=== PATIENT | female | born 1960 | race Caucasian/White ===

== ENCOUNTER 2017-04-01 21:21 | Inpatient (IN) ==
[2017-04-01 23:12] LABS: Mean Corpuscular Volume 105.9 fL (83.0-100.0); Red Cell Distribution Width 17.2 % (11.5-14.5)
[2017-04-01 23:14] LABS: Basophils % 0.4 %; Eosinophils # 0.1 K/mcL (0.0-0.6); Eosinophils % 1.4 %; Hematocrit 23.3 % (35.3-44.9); Immature Granulocytes % 0.4 % (0-4); Lymphocytes # 1.6 K/mcL (0.6-4.6); Lymphocytes % 17.5 %; Mean Corpuscular HGB Conc 28.8 g/dL (31.6-35.5); Mean Corpuscular Hemoglobin 30.5 pg (28.0-33.3); Mean Platelet Volume 9.3 fL (9.4-12.4); Monocytes # 0.8 K/mcL (0.0-1.3); Monocytes % 9.1 %; Neutrophils # 6.5 K/mcL (1.6-8.9); Platelet Count 438 K/mcL (140-400); Segmented Neutrophils % 71.2 %
[2017-04-01 23:25] LABS: BUN/Creatinine Ratio 10 (6-26); Blood Urea Nitrogen 7 mg/dL (7-20); Calcium 8.1 mg/dL (8.6-10.8); Carbon Dioxide 26 mEq/L (19-29); Chloride 105 mEq/L (98-109); Glucose 128 mg/dL (70-99); Osmolality,Calculated 286 (280-300); Potassium 3.3 mEq/L (3.5-4.5); Sodium 138 mEq/L (136-145); eGFR For African Americans > 60 (> 60); eGFR For Non-African Americans > 60 (> 60)
[2017-04-01 23:26] LABS: Hemoglobin 6.7 g/dL (11.5-15.4)
[2017-04-01 23:34] LABS: Anisocytosis 1+ (Not Present); Hypochromasia Present (Not Present)
[2017-04-01 23:35] LABS: Platelet Estimate Normal (Normal); Polychromasia 2+ (Not Present)
--- NOTE | 2017-04-01 23:52 | Emergency Department Note ---
Disposition Clinical Impression: NSTEMI (non-ST elevated myocardial infarction), Leg edema Disposition: Admitted As Inpatient Condition: Good Instructions: Myocardial Infarction (GEN), Leg Edema (ED) Referrals: Unassigned,Provider [Non-Partnered Physician] - Forms: ED Satisfaction Letter Time of Disposition: 23:58 Chest Pain HPI - General Chief Complaint: ED Chest Pain Stated Complaint: CP all day Time Seen by Provider: 04/01/17 23:14 Source: patient Mode of arrival: private vehicle Limitations: no limitations Vital Signs Reviewed: Yes Nursing Notes Reviewed: Yes - History of Present Illness HPI Narrative: 56-year-old female patient presents to emergency department with complaint of chest pain. Patient states that her pain has been present for the last 3-4 days , intermittent in nature but progressively worsening over the last 24 hours. Patient states that the pain is present with exertion but also will present at rest. She does note some mild shortness of breath but states this is normal. Patient currently denies any chest discomfort, however states that when the pain is present it can be severe at times. Patient has not had any previous cardiac issues, however states that she has had bilateral carotid endarterectomies with Dr. Obregon. She denies any recent illnesses, fever, chills, nausea or vomiting. She denies having any known drug allergies. She denies any new medications. Additionally, she notes that she sees Dr. May for chronic anemia, for which she receives iron infusions. Pt complaint: chest pain Onset (ago): day(s) Duration: constant Onset: during rest, during exertion Pain Location: left chest Severity: moderate Severity scale (1-10): 5 Quality: sharp Pain Radiation: none Improves with: nothing Worsens with: nothing Associated symptoms: Reports: dyspnea, leg swelling. Denies: nausea, vomiting, diaphoresis, sense of impending doom Treatments prior to arrival chest pain: none - Related Data Home Medications Medication Instructions Recorded Confirmed Albuterol Sulfate [Albuterol 1 puff IH BID PRN 06/20/15 03/30/17 Inhaler] Aspirin Enteric Coated [Aspirin EC] 81 mg PO DAILY 06/20/15 03/30/17 Furosemide [Lasix] 20 mg PO DAILY PRN 06/20/15 03/30/17 Omeprazole [PriLOSEC] 40 mg PO DAILY 06/20/15 03/30/17 Potassium Chloride 10 meq PO DAILY PRN 06/20/15 03/30/17 Pravastatin Sodium [Pravachol] 40 mg PO DAILY 06/20/15 03/30/17 clonazePAM [Klonopin] 0.5 mg PO DAILY PRN 06/20/15 03/30/17 Dicyclomine [Bentyl] 10 mg PO QID 10/25/16 03/30/17 Mometasone/Formoterol [Dulera 200 2 puff IH BID 10/25/16 03/30/17 Mcg/5 Mcg Inhaler] DULoxetine [Cymbalta] 30 mg PO DAILY 03/16/17 03/30/17 Sucralfate [Carafate] 1 gm PO TID 03/16/17 03/30/17 Cholecalciferol (Vitamin D3) 50,000 unit PO QWEEK 03/30/17 03/30/17 [Vitamin D] Iron 325 mg PO BID 03/30/17 03/30/17 Previous Rx's Medication Instructions Recorded Ondansetron HCl [Zofran] 4 mg PO Q6H PRN #10 tablet 02/04/17 Allergies Allergy/AdvReac Type Severity Reaction Status Date / Time No Known Allergies Allergy Verified 04/01/17 21:37 All systems ED: reviewed and negative except as stated. Constitutional: Denies: fever, chills Cardiovascular: Reports: chest pain, palpitations Respiratory: Reports: dyspnea. Denies: cough, wheezes Gastrointestinal: Denies: abdominal pain, nausea, vomiting Musculoskeletal: Denies: back pain, neck pain Integumentary: Denies: rash, abrasion, lesions Neurological: Denies: headache Psychiatric: Denies: anxiety, depression, suicidal thoughts, homicidal thoughts Chest Pain PMH - Past Medical History Medical history: Reports: hyperlipidemia, asthma, COPD Surgical history: Reports: appendectomy, carotid endarterectomy, cholecystectomy , hysterectomy, RAJESH/BSO Psychiatric history: Reports: anxiety, depression - Social History Smoking Status: Never smoker Alcohol use: Reports: none Drug use: Reports: none Physical Exam - General Limitations: no limitations General appearance: alert - Head Head exam: atraumatic, normocephalic, normal inspection - Eye Eye exam: Present: normal appearance, PERRL - Neck Neck exam: Present: normal inspection, full ROM, trachea midline - Chest Chest inspection: Present: normal inspection, symmetric chest wall rise. Absent : tenderness - Respiratory Respiratory exam: Present: normal lung sounds bilaterally. Absent: respiratory distress, wheezes, stridor - Cardiovascular Cardiovascular exam: Present: normal rhythm, tachycardia, normal heart sounds - Extremities Exam Extremities exam: Present: normal inspection, full ROM. Absent: tenderness, pedal edema - Expanded Lower Extremity Exam Gait: observed and normal - Back Exam Back exam: Present: normal inspection, full ROM. Absent: tenderness - Neurological Exam Neurological exam: Present: alert, oriented X3 - Psychiatric Psychiatric exam: Present: normal affect, normal mood - Skin Skin exam: Present: warm, dry, intact, normal color Course Vital Signs Temperature 98 F 04/01/17 21:33 Pulse Rate 117 04/01/17 21:33 Respiratory Rate 16 04/01/17 21:33 Blood Pressure 139/61 04/01/17 21:33 O2 Sat by Pulse Oximetry 99 04/01/17 21:33 Temperature 98 F 04/01/17 21:33 Pulse Rate 96 04/02/17 01:07 Respiratory Rate 20 04/02/17 01:07 Blood Pressure 128/67 04/02/17 01:07 O2 Sat by Pulse Oximetry 97 04/02/17 01:07 Oxygen Delivery Oxygen Delivery Room Air Chest Pain - Lab Data Lab results reviewed: Yes I reviewed the patient's lab results. Result diagrams: 04/01/17 23:06 04/01/17 23:06 Lab Results 04/01/17 04/01/17 04/01/17 Range/Units 23:06 23:06 23:06 WBC 9.1 (4.3-11.1) K/mcL RBC 2.20 L (3.82-4.97) M/mcL Hgb 6.7 L (11.5-15.4) g/dL Hct 23.3 L (35.3-44.9) % MCV 105.9 H (83.0-100.0) fL MCH 30.5 (28.0-33.3) pg MCHC 28.8 L (31.6-35.5) g/dL RDW 17.2 H (11.5-14.5) % Plt Count 438 H (140-400) K/mcL MPV 9.3 L (9.4-12.4) fL Immature Gran % 0.4 (0-4) % Seg Neutrophils % 71.2 % Lymphocytes % 17.5 % Monocytes % 9.1 % Eosinophils % 1.4 % Basophils % 0.4 % Neutrophils # 6.5 (1.6-8.9) K/mcL Lymphocytes # 1.6 (0.6-4.6) K/mcL Monocytes # 0.8 (0.0-1.3) K/mcL Eosinophils # 0.1 (0.0-0.6) K/mcL Basophils # 0.0 (0.0-0.2) K/mcL Platelet Estimate Normal (Normal) Polychromasia 2+ A (Not Present) Hypochromasia Present A (Not Present) Anisocytosis 1+ A (Not Present) Sodium 138 (136-145) mEq/L Potassium 3.3 L (3.5-4.5) mEq/L Chloride 105 (98-109) mEq/L Carbon Dioxide 26 (19-29) mEq/L BUN 7 (7-20) mg/dL Creatinine 0.68 (0.57-1.11) mg/dL Est GFR ( Amer) > 60 (> 60) Est GFR (Non-Af Amer) > 60 (> 60) BUN/Creatinine Ratio 10 (6-26) Glucose 128 H (70-99) mg/dL Calculated Osmolality 286 (280-300) Calcium 8.1 L (8.6-10.8) mg/dL Troponin I 0.15 H* (0-0.03) ng/mL B-Natriuretic Peptide (0-100) pg/mL 04/01/17 Range/Units 23:06 WBC (4.3-11.1) K/mcL RBC (3.82-4.97) M/mcL Hgb (11.5-15.4) g/dL Hct (35.3-44.9) % MCV (83.0-100.0) fL MCH (28.0-33.3) pg MCHC (31.6-35.5) g/dL RDW (11.5-14.5) % Plt Count (140-400) K/mcL MPV (9.4-12.4) fL Immature Gran % (0-4) % Seg Neutrophils % % Lymphocytes % % Monocytes % % Eosinophils % % Basophils % % Neutrophils # (1.6-8.9) K/mcL Lymphocytes # (0.6-4.6) K/mcL Monocytes # (0.0-1.3) K/mcL Eosinophils # (0.0-0.6) K/mcL Basophils # (0.0-0.2) K/mcL Platelet Estimate (Normal) Polychromasia (Not Present) Hypochromasia (Not Present) Anisocytosis (Not Present) Sodium (136-145) mEq/L Potassium (3.5-4.5) mEq/L Chloride (98-109) mEq/L Carbon Dioxide (19-29) mEq/L BUN (7-20) mg/dL Creatinine (0.57-1.11) mg/dL Est GFR ( Amer) (> 60) Est GFR (Non-Af Amer) (> 60) BUN/Creatinine Ratio (6-26) Glucose (70-99) mg/dL Calculated Osmolality (280-300) Calcium (8.6-10.8) mg/dL Troponin I (0-0.03) ng/mL B-Natriuretic Peptide 96 (0-100) pg/mL - Radiology Data Radiology results reviewed: Yes I reviewed the patient's radiology results. - EKG Data EKG attestation: Yes I reviewed and interpreted this EKG. EKG shows normal: sinus rhythm Rate: tachycardia Rhythm: NSR Apollo/QRS: normal Heart Score - Score History: Moderately Suspicious EKG: Normal Age: 45-65 Risk Factors: 1-2 risk factors Troponin: 1-3x normal limit HEART Score Total: 4
[2017-04-02] MEDS ORDERED: *HR* Heparin 5,000 UNIT/ML VIAL IVP ONE ×2 (00:24→01:48)
[2017-04-02] MEDS ORDERED: Aspirin 81 MG TAB.CHEW PO STA (00:24)
[2017-04-02] MEDS ORDERED: *HR* Morphine 2 MG/ML SYRINGE IVP PRN (01:03)
[2017-04-02] MEDS ORDERED: Acetaminophen 325 MG TABLET PO PRN (02:14)
[2017-04-02] MEDS ORDERED: Ondansetron 4 MG/2 ML VIAL IVP PRN (02:14)
[2017-04-02] MEDS ORDERED: Naloxone 0.4 MG/ML INJ IVP PRN (02:14)
[2017-04-02] MEDS ORDERED: clonazePAM 0.5 MG TABLET PO PRN (02:18)
[2017-04-02] MEDS ORDERED: Ipratropium/Albuterol Neb 3 ML IH PRN (03:22)
--- NOTE | 2017-04-02 03:26 | Internal Med History&Physical ---
<DeniaDale coon Rochelle - Last Filed: 04/02/17 03:23> Date of Encounter: 04/02/17 Time of Encounter: 03:24 Assessment and Plan (1) Symptomatic anemia Current visit: Yes Status: Acute Patient presents with a hemoglobin of 6.7 with tachycardia and chest pain. 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 There has not been a change in the patient's stool character as it is always black in the setting of iron supplementation. Will send stool for Hemoccult blood. Transfuse 2 units. If hemoglobin does not respond appropriately or Hemoccult stool is positive patient may warrant consult for endoscopy. (2) Demand ischemia Current visit: Yes Status: Acute Patient has a slightly elevated troponin at 0.15, most likely demand ischemia in the setting of anemia as discussed above. ACS is also a concern given as the patient has risk factors for coronary artery disease including strong early family history and history of vascular disease with carotid stenosis. We will trend troponins and if troponin rises patient may warrant further investigation related to coronary artery disease. EKG is normal sinus rhythm with no changes concerning for ischemia. Patient had an echocardiogram one week ago that showed a normal EF with mild diastolic dysfunction with no segmental wall motion abnormalities. We will continue aspirin and statin but will not anticoagulate at this time given the concern for GI bleed as discussed above. (3) Hypokalemia Current visit: Yes Status: Acute Potassium 3.3 on presentation, will replete. We will recheck. (4) Primary biliary cirrhosis Current visit: Yes Status: Acute With gastric antral vascular ectasia. Concerned that this is a source of bleeding as discussed above. If hemoglobin does not respond or patient develops brisk upper GI bleed patient will likely require consultation for endoscopy. (5) Carotid stenosis, bilateral Current visit: Yes Status: Acute Stable. Status post carotid endarterectomy in June 2015. Continue aspirin and statin. (6) Depression Current visit: Yes Status: Acute Stable. Continue home medications. Qualifiers: Depression Type: unspecified Qualified Code(s): F32.9 - Major depressive disorder, single episode, unspecified (7) DVT prophylaxis Current visit: Yes Status: Acute EPCDs Internal Medicine - H&P: HPI Chief complaint: Chest pain Admitted From: Emergency Dept Plans for Post Hospital Care: Home History of present illness: Ms. Barajas is a 56 year old female with history of primary biliary cirrhosis, anemia, carotid stenosis presents with chest pain. Patient states that her chest pain started 3 days ago. She states when it initially started it was intermittent and occurred occasionally both at rest and with exertion and when she got emotional. She states that this afternoon the chest pain became constant. She describes it as a tightness that wraps all the way around her chest and her back. She states she has never had anything like this before. She reports occasional nausea and dry heaves associated with her pain. She denies shortness of breath, diaphoresis. Patient states that she has history of anemia and is seeing a post splitter for this, and she is unknown of the cause at this time. She denies any active source of bleeding. She states her bowel movements are always black due to the iron supplementation that she takes. She denies any change in her bowel movements. She denies hematemesis, epistaxis, hematuria. Past Med Surg Social Fam HX - Past Medical History Medical history: hyperlipidemia, asthma, COPD Psychiatric history: anxiety, depression - Past Surgical History Surgical History: appendectomy, carotid endarterectomy, cholecystectomy, hysterectomy, RJAESH/BSO - Social History Smoking Status: Never smoker Smokeless Tobacco Status: No Alcohol use: none Drug use: none - Family History Father Hx Family Cardiac Disorders: Yes (CA at age 40) Mother Hx Family Cardiac Disorders: Yes (CA in 60s and carotid stenosis) Internal Medicine - H&P: Meds Albuterol Sulfate [Albuterol Inhaler] 1 puff IH BID PRN 06/20/15 [History] Aspirin Enteric Coated [Aspirin EC] 81 mg PO DAILY 06/20/15 [History] Furosemide [Lasix] 20 mg PO DAILY PRN 06/20/15 [History] Omeprazole [PriLOSEC] 40 mg PO DAILY 06/20/15 [History] Potassium Chloride 10 meq PO DAILY PRN 06/20/15 [History] Pravastatin Sodium [Pravachol] 40 mg PO DAILY 06/20/15 [History] clonazePAM [Klonopin] 0.5 mg PO DAILY PRN 06/20/15 [History] Dicyclomine [Bentyl] 10 mg PO QID 10/25/16 [History] Mometasone/Formoterol [Dulera 200 Mcg/5 Mcg Inhaler] 2 puff IH BID 10/25/16 [ History] Ondansetron HCl [Zofran] 4 mg PO Q6H PRN #10 tablet 02/04/17 [Rx] DULoxetine [Cymbalta] 30 mg PO DAILY 03/16/17 [History] Sucralfate [Carafate] 1 gm PO TID 03/16/17 [History] Cholecalciferol (Vitamin D3) [Vitamin D] 50,000 unit PO QWEEK 03/30/17 [History] Iron 325 mg PO BID 03/30/17 [History] Allergies No Known Allergies Allergy (Verified 04/01/17 21:37) All Systems PM: A 10-system review of systems was performed and is negative for pertinent findings except as documented above in the HPI. Review of systems: 10 point review of systems was obtained and is negative other than stated in history of present illness. - Constitutional Vitals: Temp Pulse Resp BP Pulse Ox 98 F 100 18 122/52 96 04/01/17 21:33 04/02/17 02:23 04/02/17 03:06 04/02/17 03:06 04/02/17 02:23 General appearance: Present: A&O X 3, pleasant, no acute distress, answers questions appropriately - Head Head exam: Present: atraumatic, normal inspection, normocephalic - Eye Eye exam: Present: EOMI, PERRL - ENT ENT exam: Present: mucous membranes moist - Neck Neck exam general surgery: Present: full ROM. Absent: nuchal rigidity - Respiratory Respiratory exam: Present: CTAB. Absent: rales, rhonchi, wheezes - Cardiovascular Cardiovascular exam: Present: RRR. Absent: gallop, rubs, systolic murmur Additional comments: Chest pain not reproducible on palpation. - GI/Abdominal GI/Abdominal exam: Present: normal bowel sounds, soft. Absent: distended, tenderness - Extremities Exam Extremities exam: Present: pedal edema (1+) - Neurological Exam Neurological exam: Present: alert, CN II-XII intact, oriented X3, no focal deficits, strengths equal and symetr throughout. Absent: facial droop, speech deficit - Psychiatric Psychiatric exam: Present: normal affect, normal mood - Skin Skin exam: Present: dry, intact, warm Internal Med - H&P Results - Labs CBC & Chem 7: 04/01/17 23:06 04/01/17 23:06 <Joe Mcnair - Last Filed: 04/02/17 04:13> Date of Encounter: 04/02/17 Internal Medicine - H&P: HPI History of present illness: Ms. Barajas is a 56 year old female All Systems PM: A 10-system review of systems was performed and is negative for pertinent findings except as documented above in the HPI. - Constitutional Vitals: Temp Pulse Resp BP Pulse Ox 98 F 100 18 122/52 96 04/01/17 21:33 04/02/17 02:23 04/02/17 03:06 04/02/17 03:06 04/02/17 02:23 Internal Med - H&P Results - Labs CBC & Chem 7: 04/01/17 23:06 04/01/17 23:06 - EKG Data -: EKG Interpreted by Myself (no ischemic changes) - Diagnostic Studies Chest x-ray Status: image reviewed by me - Attending Attestation I personally interviewed and examined this patient and my medical decision- making was reviewed with the Resident Physician. I agree with the documented findings, disposition and treatment plan as described. Joe Mcnair MD, MPH Hospitalist
[2017-04-02] MEDS ORDERED: 0.9 % Sodium Chloride 250 ML ONE ×2 (03:54→10:16)
[2017-04-02] MEDS ORDERED: Potassium Chloride 20 MEQ, Lidocaine 1% 2 ML in D5% in Water 250 ML IVPB ONE (06:01)
[2017-04-02] MEDS: Sucralfate 1 GM TABLET PO SCH ×3 (07:58→22:46)
[2017-04-02] MEDS: Aspirin Enteric Coated 81 MG Tablet PO SCH (07:58)
[2017-04-02] MEDS: Pantoprazole 40 MG VIAL IVP SCH ×2 (07:59→22:46)
[2017-04-02 08:10] LABS: Basophils % 0.5 %; Eosinophils # 0.2 K/mcL (0.0-0.6); Eosinophils % 2.4 %; Hematocrit 21.1 % (35.3-44.9); Hemoglobin 6.3 g/dL (11.5-15.4); Immature Granulocytes % 0.3 % (0-4); Immature Reticulocyte % 36.3 % (11.0-38.0); Lymphocytes # 1.5 K/mcL (0.6-4.6); Mean Corpuscular HGB Conc 29.9 g/dL (31.6-35.5); Mean Corpuscular Volume 100.5 fL (83.0-100.0); Mean Platelet Volume 9.4 fL (9.4-12.4); Monocytes # 0.7 K/mcL (0.0-1.3); Monocytes % 11.1 %; Neutrophils # 3.7 K/mcL (1.6-8.9); Platelet Count 354 K/mcL (140-400); Red Cell Distribution Width 20.5 % (11.5-14.5); Reticulocyte % 9.7 % (1.6-2.8); Segmented Neutrophils % 60.7 %
[2017-04-02 08:14] LABS: INR 1.1; Prothrombin Time 12.2 Seconds (9.4-12.1)
[2017-04-02 08:30] LABS: BUN/Creatinine Ratio 11 (6-26); Blood Urea Nitrogen 7 mg/dL (7-20); Calcium 7.7 mg/dL (8.6-10.8); Carbon Dioxide 29 mEq/L (19-29); Chloride 105 mEq/L (98-109); Glucose 142 mg/dL (70-99); Magnesium 1.8 mg/dL (1.6-2.6); Osmolality,Calculated 286 (280-300); Potassium 3.3 mEq/L (3.5-4.5); Sodium 138 mEq/L (136-145); eGFR For African Americans > 60 (> 60); eGFR For Non-African Americans > 60 (> 60)
[2017-04-02] MEDS: Budesonide/Formoterol 160/4.5 MDI IH SCH ×2 (08:34→19:48)
--- NOTE | 2017-04-02 12:44 | Event Note ---
Date of Encounter: 04/02/17 Time of Encounter: 08:20 Pt admitted earlier today for anemia and chest pain. Has hx of PBC and GAVE. Hemoglobin not much change after first unit. Will repeat another unit and recheck. Legs edematous - most likely related to high output. Check venous duplex. Cycle troponin. NPO after midnight for possible stress or if H/H still low may need endoscopy. Other others as is for now.
[2017-04-02 16:06] LABS: Hematocrit 26.6 % (35.3-44.9); Hemoglobin 7.8 g/dL (11.5-15.4)
[2017-04-02 22:29] LABS: Hematocrit 24.1 % (35.3-44.9); Hemoglobin 7.2 g/dL (11.5-15.4)
[2017-04-03 03:54] LABS: Hematocrit 24.3 % (35.3-44.9); Hemoglobin 7.3 g/dL (11.5-15.4); Mean Corpuscular Hemoglobin 29.4 pg (28.0-33.3); Mean Platelet Volume 9.6 fL (9.4-12.4); Platelet Count 366 K/mcL (140-400); Red Blood Count 2.48 M/mcL (3.82-4.97); Red Cell Distribution Width 21.2 % (11.5-14.5)
[2017-04-03 04:04] LABS: BUN/Creatinine Ratio 11 (6-26); Blood Urea Nitrogen 7 mg/dL (7-20); Calcium 7.8 mg/dL (8.6-10.8); Carbon Dioxide 29 mEq/L (19-29); Chloride 110 mEq/L (98-109); Glucose 113 mg/dL (70-99); Osmolality,Calculated 293 (280-300); Potassium 3.6 mEq/L (3.5-4.5); Sodium 142 mEq/L (136-145); eGFR For African Americans > 60 (> 60); eGFR For Non-African Americans > 60 (> 60)
[2017-04-03] MEDS: Budesonide/Formoterol 160/4.5 MDI IH SCH (08:01)
[2017-04-03] MEDS: Aspirin Enteric Coated 81 MG Tablet PO SCH (09:22)
[2017-04-03] MEDS: Pantoprazole 40 MG VIAL IVP SCH (09:23)
[2017-04-03] MEDS: Sucralfate 1 GM TABLET PO SCH ×2 (09:23→15:08)
[2017-04-03] MEDS ORDERED: 0.9 % Sodium Chloride 250 ML ONE ×2 (10:34→15:07)
--- NOTE | 2017-04-03 11:03 | Discharge Summary ---
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 (4) Demand ischemia Priority: Secondary Status: Acute (5) Depression Priority: Secondary Status: Chronic Qualifiers: Depression Type: unspecified Qualified Code(s): F32.9 - Major depressive disorder, single episode, unspecified (6) MACHADO (nonalcoholic steatohepatitis) Priority: Secondary Status: Chronic - Discharge Medications Prescriptions: Nitroglycerin 0.4 mg SL Q5MIN PRN #1 bottle PRN Reason: Chest Pain Metoprolol [Lopressor] 12.5 mg PO BID #30 tablet Home Medications: Albuterol Sulfate [Albuterol Inhaler] 1 - 2 puff IH Q6H PRN 06/20/15 [History] Aspirin Enteric Coated [Aspirin EC] 81 mg PO DAILY 06/20/15 [History] Furosemide [Lasix] 20 mg PO DAILY PRN 06/20/15 [History] Omeprazole [PriLOSEC] 40 mg PO DAILY 06/20/15 [History] Potassium Chloride 10 meq PO DAILY 06/20/15 [History] Pravastatin Sodium [Pravachol] 40 mg PO DAILY 06/20/15 [History] clonazePAM [Klonopin] 0.5 mg PO DAILY PRN 06/20/15 [History] Dicyclomine [Bentyl] 10 mg PO QID 10/25/16 [History] Mometasone/Formoterol [Dulera 200 Mcg/5 Mcg Inhaler] 2 puff IH BID 10/25/16 [ History] DULoxetine [Cymbalta] 30 mg PO BID 03/16/17 [History] Sucralfate [Carafate] 1 gm PO TID 03/16/17 [History] Cholecalciferol (Vitamin D3) [Vitamin D3] 50,000 unit PO QWEEK 03/30/17 [History ] Ferrous Sulfate [Iron] 325 mg PO BID 03/30/17 [History] Escitalopram [Lexapro] 20 mg PO DAILY 04/02/17 [History] Ursodiol [Millicent Forte] 500 mg PO BID 04/02/17 [History] Aspirin Enteric Coated [Aspirin EC] 81 mg PO DAILY tablet. 04/03/17 [Rx] Metoprolol [Lopressor] 12.5 mg PO BID #30 tablet 04/03/17 [Rx] Nitroglycerin 0.4 mg SL Q5MIN PRN #1 bottle 04/03/17 [Rx] Allergies/Adverse Reactions: Allergies No Known Allergies Allergy (Verified 04/01/17 21:37) Procedures/tests Complete & Pending: Procedures Performed prior 72 hours Category Date Time Status EV venous imaging LE BI Routine Y 04/02/17 09:14 Completed Date of admission: 04/02/17 02:50 Primary care physician: Nata Zelaya CNP Consults: 04/03/17 09:02 Consult to Cardiology [CONS] Routine Comment: Consulting Provider: Cardiology [facility] Reason for Consult: abnormal troponin and chest pain Time Notified: 08:45 Call Completed: Yes Discharging clinician: Malcolm Borden Anticipated date of discharge: 04/03/17 - Patient Status Disposition: Home, Self-Care Condition: Good Functional capacity at discharge: independent ambulation Overall status at discharge: patient is progressing back to baseline - Discharge Instructions Follow Up With: Nata Zelaya CNP [Primary Care Provider] - Forms: Work/School Release - Diet and Activity Activity: increase activity as tolerated Diet: advance to your usual diet Hospital course: Ms. Barajas is a 56 year old female with hx of PBC and GAVE presented to ED with complaints of chest pain. She was evaluated and found to have hemoglobin of 6.7 and elevated troponin. She was admitted for further evaluation and treatment. Ms. Barajas was admitted to [facility]. She was transfused 2 units of PRBCs with some improvement in her hgb. She was evaluated by cardiology and due to anemia could not pursue further work up until improved. It was felt the troponin was demand ischemia. She had no further chest pain. She was given 2 more units PRBCs on 04/03. She tolerated OK and was felt stable for discharge home with outpatient follow up. - Time Spent with Patient Total time spent providing and/or coordinating discharge services: 42min - Constitutional Vitals: Temp Pulse Resp BP Pulse Ox 98.1 F 105 16 143/75 92 04/03/17 07:53 04/03/17 07:53 04/03/17 07:53 04/03/17 07:53 04/03/17 07:53 General appearance: Present: A&O X 3, pleasant, answers questions appropriately - Head Head exam: Present: normocephalic - Eye Eye exam: Present: conjuntiva pink - ENT ENT exam: Present: mucous membranes moist - Respiratory Respiratory exam: Present: CTAB. Absent: rhonchi, wheezes - Cardiovascular Cardiovascular exam: Present: RRR. Absent: tachycardia - GI/Abdominal GI/Abdominal exam: Present: soft. Absent: tenderness - Extremities Exam Extremities exam: Present: warm. Absent: tenderness - Neurological Exam Neurological exam: Present: alert, oriented X3, no focal deficits - Psychiatric Psychiatric exam: Present: normal affect, normal mood - Skin Skin exam: Present: dry, warm. Absent: rash
--- NOTE | 2017-04-03 13:19 | Venous Imaging Report ---
LE Venous Duplex Patient Name:Zina Barajas Order Number:[id number] Procedure Date:04/02/2017 Date:2Age:56 yrs Gender:Female Location:[facility] Room #: [id number] General Farmer:Lamberto Foley RDCS Referring MD:DO Dee Alvarenga MD:Maco Orielly MD Primary Indications:Swelling of limb Secondary Indications: Impressions: Normal bilateral lower extremity deep and superficial venous exam. Findings Venous Duplex Results: Right: Venous imaging of the lower extremity reveals full patency and normal vessel compressibility of the right distal iliac, right common femoral, right superficial femoral, right popliteal, right posterior tibial, right peroneal, right saphenofemoral junction, right great saphenous and right lesser saphenous. Doppler signals in the evaluated veins were normal. Left: Venous imaging of the lower extremity reveals full patency and normal vessel compressibility of the left distal iliac, left common femoral, left superficial femoral, left popliteal, left posterior tibial, left peroneal, left saphenofemoral junction, left great saphenous and left lesser saphenous. Doppler signals in the evaluated veins were normal. Prior Study: No prior study available for comparison. Lower Extremity Venous Duplex Side Vein Compress Spontaneous Flow Augment Diameter (cm) Depth (cm) Right Distal Iliac Normal Yes Phasic Yes Right Common Femoral Normal Yes Phasic Yes Right Superficial Femoral Normal Yes Phasic Yes Right Popliteal Normal Yes Phasic Yes Right Posterior Tibial Normal Yes Phasic Yes Right Peroneal Normal Yes Phasic Yes Right Saphenofemoral Junction Normal Yes Phasic Yes Right Great Saphenous Normal Yes Phasic Yes Right Lesser Saphenous Normal Yes Phasic Yes Left Distal Iliac Normal Yes Phasic Yes Left Common Femoral Normal Yes Phasic Yes Left Superficial Femoral Normal Yes Phasic Yes Left Popliteal Normal Yes Phasic Yes Left Posterior Tibial Normal Yes Phasic Yes Left Peroneal Normal Yes Phasic Yes Left Saphenofemoral Junction Normal Yes Phasic Yes Left Great Saphenous Normal Yes Phasic Yes Left Lesser Saphenous Normal Yes Phasic Yes Updated by Maco Oreilly MD on 04/03/2017 1:11:10 PM electronically signed on 04/03/2017 1:13:45 PM with status of Final
--- NOTE | 2017-04-03 14:09 | Cardiology Consult Note ---
<Fadumo Cordova Tahmina - Last Filed: 04/03/17 14:56> Date of Encounter: 04/03/17 Time of Encounter: 13:30 Assessment and Plan (1) Elevated troponin Current Visit: Yes Status: Acute Mild, adynamic troponin elevation in the setting of acute anemia requiring PRBC infusion. HgB 7.3 today. This is likely demand ischemia, non-diagnostic for ACS. Presented with atypical chest pain symptoms, now resolved. No ischemic ECG changes. Reported primary biliary colic and GAVE. Patient reports pending outpatient ECG with possible cauterization for gastric ulcers. She has significant risk factors for CAD including: HLD, PAD, former tobacco use , and family hx (father-[place] in 40's-50's/bypass and mother-[place] 60's). Currently not a candidate for ischemic evaluation. Recent TTE shows preserved LVEF, 70% with normal wall motion. Given acute anemia, recommend medical management--continue asa. Start betablocker and prn NTG tabs. Stop statin due to abnormal LFTs (AST 179, ALT 117 on 03/16/17). Close outpatient follow-up with [facility]--will coordinate appt for possible ischemic evaluation in the future once anemia/GI bleed has resolved. Discussion w patient/family: The assessment and plan as outlined above was discussed with the patient and/or family members who expressed understanding and agreement. All questions were answered. Thank you for involving us in the care of your patient. Please call with any questions. The patient will be discussed and reviewed with Dr. Vang; changes to be made accordingly. History of Present Illness Consult date: 04/03/17 Requesting physician: Malcolm Borden Consult reason: Elevated troponin Chief complaint: Chest pain, GI bleed History of present illness: Ms. 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 Patient states pain has been occurring over the past several days, described as left sided and is constant. Can obtain relief if she holds on to her side or rocking movement also improves pain. Upon arrival to ED, she was found to be anemic requiring PRBC, HgB 7.3 today. Cardiology consulted for troponin 0.15, 0.15, 0.12, 0.08 Reports extensive GI work-up recently with Dr. Carpenter--states has pending EGD to cauterize ulcers that is being coordinated in the outpatient setting. Has followed with Dr. May with Hematology for anemia and has received IV iron infusions. Prior CV testing: TTE 03/25/17: LVEF 70%, normal wall motion Past Med Surg Social Fam HX - Past Medical History Medical history: asthma, COPD, GERD, hyperlipidemia, liver disease, other ( biliary cirrhosis) Psychiatric history: anxiety, depression - Past Surgical History Surgical History: appendectomy, carotid endarterectomy (bilateral), cholecystectomy, hysterectomy, RAJESH/BSO, other - Social History Smoking Status: Former smoker Packs per day: 1.5-2 Smokeless Tobacco Status: No Alcohol use: rarely Drug use: none - Family History Father Hx Family Cardiac Disorders: Yes ([place] at age 40) Mother Hx Family Cardiac Disorders: Yes ([place] in 60s) Medications and Allergies Albuterol Sulfate [Albuterol Inhaler] 1 - 2 puff IH Q6H PRN 06/20/15 [History] Aspirin Enteric Coated [Aspirin EC] 81 mg PO DAILY 06/20/15 [History] Furosemide [Lasix] 20 mg PO DAILY PRN 06/20/15 [History] Omeprazole [PriLOSEC] 40 mg PO DAILY 06/20/15 [History] Potassium Chloride 10 meq PO DAILY 06/20/15 [History] Pravastatin Sodium [Pravachol] 40 mg PO DAILY 06/20/15 [History] clonazePAM [Klonopin] 0.5 mg PO DAILY PRN 06/20/15 [History] Dicyclomine [Bentyl] 10 mg PO QID 10/25/16 [History] Mometasone/Formoterol [Dulera 200 Mcg/5 Mcg Inhaler] 2 puff IH BID 10/25/16 [ History] DULoxetine [Cymbalta] 30 mg PO BID 03/16/17 [History] Sucralfate [Carafate] 1 gm PO TID 03/16/17 [History] Cholecalciferol (Vitamin D3) [Vitamin D] 50,000 unit PO QWEEK 03/30/17 [History] Ferrous Sulfate [Iron] 325 mg PO BID 03/30/17 [History] Escitalopram [Lexapro] 20 mg PO DAILY 04/02/17 [History] Ursodiol [Millicent Forte] 500 mg PO BID 04/02/17 [History] Allergies No Known Allergies Allergy (Verified 04/01/17 21:37) All Systems Review: A 10-system review of systems was performed and is negative for pertinent findings except as documented above in the HPI. - Cardiovascular Cardiovascular: as per HPI Physical Examination Vital Signs, Last 4 Hours Temp Pulse Resp BP Pulse Ox 04/03/17 11:19 98 F 98 16 121/73 93 04/03/17 11:04 98.2 F 102 16 137/81 96 General: Conversant, No Apparent Distress HEENT: Atraumatic, Normocephaly, Mucus Membranes Moist Neck: No JVD, Normal carotid pulses Cardiac: Reg Rate and Rhythm, Normal S1 and S2, No Murmur Lungs: Normal Breath Sounds, No Wheeze, Rales, Rhonchi Neuro: Alert and responsive, No focal deficits noted Abdomen: Soft, Non-Tender Skin: No rashes noted on visualized skin Musculoskeletal: No Chest Wall Tenderness Extremities: No Clubbing, No Cyanosis, Normal Pulses, Other (non-pitting BLE edema) Results 04/03/17 03:23 04/03/17 03:23 Lab Results 04/02/17 04/02/17 04/02/17 13:45 15:50 22:02 WBC Hgb 7.8 L D 7.2 L Hct 26.6 L 24.1 L Plt Count Sodium Potassium Chloride Carbon Dioxide BUN Creatinine Glucose Calcium Magnesium Troponin I 0.12 H* 04/02/17 04/03/17 04/03/17 22:02 03:23 03:23 WBC 6.4 Hgb 7.3 L Hct 24.3 L Plt Count 366 Sodium 142 Potassium 3.6 Chloride 110 H Carbon Dioxide 29 BUN 7 Creatinine 0.63 Glucose 113 H Calcium 7.8 L Magnesium 2.0 Troponin I 0.08 H* Active Medications Acetaminophen (Tylenol) 650 mg PO Q6HR PRN PRN Reason: Mild Pain (1-3) Stop: 10/02/17 02:15 Last Admin: 04/03/17 06:12 Dose: 650 mg Albuterol/Ipratropium (Duoneb) 3 ml IH [id number] PRN; Protocol PRN Reason: Shortness Of Breath/Wheezing Stop: 10/02/17 03:23 Aspirin (Aspirin Ec) 81 mg PO DAILY [facility] Stop: 10/02/17 09:01 Last Admin: 04/03/17 09:22 Dose: 81 mg Budesonide/Formoterol Fumarate (Symbicort) 1 puff IH BIDR [facility] PRN Reason: Protocol Stop: 10/02/17 10:01 Last Admin: 04/03/17 08:01 Dose: Not Given Clonazepam (Klonopin) 0.5 mg PO DAILY PRN PRN Reason: Anxiety Stop: 10/02/17 02:19 Duloxetine HCl (Cymbalta) 30 mg PO DAILY [facility] Stop: 10/02/17 09:01 Last Admin: 04/03/17 09:23 Dose: 30 mg Ferrous Sulfate (Ferrous Sulfate) 325 mg PO BID [facility] Stop: 10/02/17 09:01 Last Admin: 04/03/17 09:23 Dose: 325 mg Naloxone HCl (Narcan) 0.4 mg IVP Q2MIN PRN PRN Reason: Opioid Reversal Stop: 10/02/17 02:15 Ondansetron HCl (Zofran) 4 mg IVP Q8HR PRN PRN Reason: Nausea And Vomiting Stop: 10/02/17 02:15 Pantoprazole Sodium (Protonix) 40 mg IVP BID [facility] Stop: 10/02/17 09:01 Last Admin: 04/03/17 09:23 Dose: 40 mg Simvastatin (Zocor) 20 mg PO DAILY [facility] Stop: 10/02/17 09:01 Last Admin: 04/03/17 09:22 Dose: 20 mg Sucralfate (Carafate) 1 gm PO TID [facility] Stop: 10/02/17 09:01 Last Admin: 04/03/17 09:23 Dose: 1 gm - Imaging and Cardiology Echo: report reviewed Other Results: 12 hour tele: avg HR=79 SR. No significant event noted. - EKG Interpretation EKG results cardiology: personally reviewed Consult Discharge Plan - Plan Referrals: Nata Zelaya, DANILO [Primary Care Provider] - <Devora Vang - Last Filed: 04/03/17 16:24> Date of Encounter: 04/03/17 Assessment and Plan Discussion w patient/family: The assessment and plan as outlined above was discussed with the patient and/or family members who expressed understanding and agreement. All questions were answered. Thank you for involving us in the care of your patient. Please call with any questions. History of Present Illness History of present illness: Ms. Barajas is a 56 year old female All Systems Review: A 10-system review of systems was performed and is negative for pertinent findings except as documented above in the HPI. Physical Examination Vital Signs, Last 4 Hours Temp Pulse Resp BP Pulse Ox 04/03/17 15:28 98.6 F 97 17 133/80 96 04/03/17 15:13 98.7 F 96 16 127/68 96 04/03/17 14:50 98.7 F 96 16 127/68 96 Results 04/03/17 03:23 04/03/17 03:23 Lab Results 04/02/17 04/02/17 04/03/17 22:02 22:02 03:23 WBC 6.4 Hgb 7.2 L 7.3 L Hct 24.1 L 24.3 L Plt Count 366 Sodium Potassium Chloride Carbon Dioxide BUN Creatinine Glucose Calcium Magnesium Troponin I 0.08 H* 04/03/17 03:23 WBC Hgb Hct Plt Count Sodium 142 Potassium 3.6 Chloride 110 H Carbon Dioxide 29 BUN 7 Creatinine 0.63 Glucose 113 H Calcium 7.8 L Magnesium 2.0 Troponin I - Attending Attestation I examined this patient and my medical decision-making was reviewed with the PIGMENT MAKING SUPERVISOR/PA/Advanced Practice Nurse/Resident Physician. I agree with the documented findings, disposition and treatment plan. Ms. Barajas presents with flat mild troponin elevation in setting of acute anemia requiring blood transfusion. Troponin is not diagnostic for ACS. Recent TTE demonstrates normal EF. Not a candidate for anticoagulation at this time. Recommend medical management - continue aspirin as tolerated, start BB and use prn SL NTG. May consider continuing statin - she has been on statin as outpatient and LFTs have been elevated but stable. Will defer to primary team - also with diagnosis of PBC. No further recommendations. Will sign off. Please call with questions.
[2017-04-03] MEDS ORDERED: Nitroglycerin 0.4 MG TAB.SUBL SL PRN (15:04)
[2017-04-03 18:26] VITALS: BP 146/77
[2017-04-03 18:56] LABS: Hematocrit 32.6 % (35.3-44.9); Hemoglobin 9.9 g/dL (11.5-15.4)
--- NOTE | 2017-04-04 09:46 | Electrocardiograph Report ---
[address] [place], [place] [address] Test Date: 2017-04-01 Pat Name: Zina Barajas Department: 105 Room: 2A Gender: F Car Rental Deliverer: ADONIS : 1960 Requested By: Solitario King Order Number: [id number] Reading MD: Ru Whitlock MD Measurements Intervals [place] Rate: 111 P: 71 MD: 174 QRS: 40 QRSD: 77 T: 56 QT: 336 QTc: 401 Interpretive Statements SINUS TACHYCARDIA Electronically Signed On 04-04-2017 9:45:24 EDT by Ru Whitlock MD
== END 2017-04-03 18:56 | disposition home or self-care (01) | DRG 812 ==
LOC: EMEROO 21:21 → 2NNU 21:21 → 2ANU 04-02 02:49 → SUATTDRO 04-02 02:50 → 2ANU 04-02 03:29
PROVIDERS: ADMIT Internal Medicine Endocrinology, Diabetes & Metabolism; ATTEND Internal Medicine

== ENCOUNTER 2019-12-27 15:44 | Inpatient (IN) ==
[2019-12-27 16:11] LABS: Basophils # 0.1 K/mcL (0.0-0.2); Eosinophils # 0.1 K/mcL (0.0-0.6); Eosinophils % 1.6 %; Hematocrit 52.3 % (35.3-44.9); Hemoglobin 16.8 g/dL (11.5-15.4); Immature Granulocytes % 0.3 % (0-4); Lymphocytes # 0.9 K/mcL (0.6-4.6); Lymphocytes % 12.9 %; Mean Corpuscular HGB Conc 32.1 g/dL (31.6-35.5); Mean Corpuscular Hemoglobin 31.3 pg (28.0-33.3); Mean Corpuscular Volume 97.6 fL (83.0-100.0); Mean Platelet Volume 9.7 fL (9.4-12.4); Monocytes # 0.7 K/mcL (0.0-1.3); Monocytes % 9.7 %; Neutrophils # 5.2 K/mcL (1.6-8.9); Platelet Count 272 K/mcL (140-400); Red Blood Count 5.36 M/mcL (3.82-4.97); Red Cell Distribution Width 13.6 % (11.5-14.5); Segmented Neutrophils % 74.5 %
[2019-12-27 16:13] LABS: Prothrombin Time 11.7 Seconds (9.4-12.1)
[2019-12-27] MEDS ORDERED: Morphine Sulfate 2 MG/ML SYRINGE IVP STA (16:17)
[2019-12-27] MEDS ORDERED: Isovue-370 500 ML BOTTLE IVP ONE (16:17)
[2019-12-27] MEDS ORDERED: Ondansetron 4 MG/2 ML VIAL IVP ONE (16:17)
[2019-12-27] MEDS ORDERED: *HR* Labetalol 20 MG/4 ML SYRINGE IVP ONE (16:18)
[2019-12-27] MEDS ORDERED: Nitroglycerin 1 INCH/GM PACKET TP ONE (16:19)
[2019-12-27 16:30] LABS: BUN/Creatinine Ratio 7 (6-26); Blood Urea Nitrogen 4 mg/dL (6-20); Calcium 9.3 mg/dL (8.6-10.3); Carbon Dioxide 32 mEq/L (23-29); Chloride 102 mEq/L (98-107); Glucose 107 mg/dL (70-105); Osmolality,Calculated 287 (280-300); Potassium 3.7 mEq/L (3.5-5.1); Sodium 140 mEq/L (136-145); eGFR For African Americans > 60 (> 60); eGFR For Non-African Americans > 60 (> 60)
[2019-12-27 16:34] LABS: Troponin I 0.21 ng/mL (< 0.04)
[2019-12-27] MEDS ORDERED: *HR* Heparin 5,000 UNIT/ML VIAL IVP PRN ×2 (17:12)
[2019-12-27] MEDS ORDERED: *HR* Heparin 5,000 UNIT/ML VIAL IVP ONE (17:12)
[2019-12-27] MEDS: Heparin 25,000 UNIT/250 ML D5W 25,000 UNIT/250 ML IV.SOLN IVC SCH (17:24)
[2019-12-27] MEDS ORDERED: Morphine Sulfate 2 MG/ML SYRINGE IVP ONE (17:36)
[2019-12-27] MEDS ORDERED: Naloxone 0.4 MG/ML INJ IVP PRN (18:00)
[2019-12-27] MEDS ORDERED: Ondansetron 4 MG/2 ML VIAL IVP PRN (18:00)
[2019-12-27] MEDS ORDERED: Acetaminophen 325 MG TABLET PO PRN (18:00)
[2019-12-27] MEDS ORDERED: Morphine Sulfate 2 MG/ML SYRINGE IVP PRN (18:07)
[2019-12-27] MEDS ORDERED: *HR* Labetalol 20 MG/4 ML SYRINGE IVP PRN (18:08)
[2019-12-27] MEDS ORDERED: Ipratropium/Albuterol Neb 3 ML IH PRN (18:09)
[2019-12-27] MEDS ORDERED: Azithromycin 500 MG in 0.9 % Sodium Chloride 250 ML IVPB ONE (18:09)
[2019-12-27] MEDS ORDERED: predniSONE 20 MG TABLET PO SCH (18:15)
[2019-12-27] MEDS: Nicotine 14 MG PATCH.TD24 TD SCH (18:46)
[2019-12-27 22:20] LABS: Amphetamine Screen,Urine Negative ng/mL (Cutoff=1000); Barbiturate Screen,Urine Negative ng/mL (Cutoff=200); Benzodiazepines Screen,Urine Negative ng/mL (Cutoff=200); Cannabinoid Screen,Urine Negative ng/mL (Cutoff = 50); Cocaine Screen,Urine Negative ng/mL (Cutoff= 300); Opiate Screen,Urine Positive ng/mL (Cutoff=300); Phencyclidine Screen,Urine Negative ng/mL (Cutoff=25)
[2019-12-28] MEDS: clonazePAM 0.5 MG TABLET PO PRN (01:27)
[2019-12-28 06:08] LABS: Basophils % 0.2 %; Hematocrit 47.7 % (35.3-44.9); Immature Granulocytes % 0.3 % (0-4); Lymphocytes # 0.9 K/mcL (0.6-4.6); Lymphocytes % 14.7 %; Mean Corpuscular HGB Conc 30.6 g/dL (31.6-35.5); Mean Corpuscular Hemoglobin 29.9 pg (28.0-33.3); Mean Corpuscular Volume 97.5 fL (83.0-100.0); Mean Platelet Volume 10.1 fL (9.4-12.4); Monocytes # 0.4 K/mcL (0.0-1.3); Monocytes % 7.5 %; Neutrophils # 4.5 K/mcL (1.6-8.9); Platelet Count 241 K/mcL (140-400); Red Blood Count 4.89 M/mcL (3.82-4.97); Red Cell Distribution Width 13.4 % (11.5-14.5); Segmented Neutrophils % 77.3 %; White Blood Count 5.8 K/mcL (4.3-11.1)
[2019-12-28 06:09] LABS: Hemoglobin 14.6 g/dL (11.5-15.4)
[2019-12-28 06:33] LABS: BUN/Creatinine Ratio 10 (6-26); Blood Urea Nitrogen 6 mg/dL (6-20); Calcium 8.9 mg/dL (8.6-10.3); Carbon Dioxide 31 mEq/L (23-29); Chloride 104 mEq/L (98-107); Chol/HDL Ratio 6.2 (0-4.9); Cholesterol 222 mg/dL (< 200); Glucose 147 mg/dL (70-105); HDL Cholesterol 36 mg/dL (40-59); LDL Cholesterol,Calculated 164 mg/dL (0-99); Magnesium 2.3 mg/dL (1.6-2.6); Osmolality,Calculated 290 (280-300); Potassium 4.2 mEq/L (3.5-5.1); Sodium 140 mEq/L (136-145); Triglycerides 112 mg/dL (< 150); Troponin I 3.27 ng/mL (< 0.04); eGFR For African Americans > 60 (> 60); eGFR For Non-African Americans > 60 (> 60)
[2019-12-28] MEDS: Nicotine 14 MG PATCH.TD24 TD SCH ×3 (08:09→18:59)
[2019-12-28] MEDS: Aspirin 81 MG TAB.CHEW PO SCH (08:09)
[2019-12-28] MEDS ORDERED: 0.9 % Sodium Chloride 1,000 ML ONE ×2 (10:30→10:34)
[2019-12-28] MEDS ORDERED: *HR* Heparin 10,000 UNIT/10 ML VIAL ONE (10:30)
[2019-12-28] MEDS ORDERED: Nitroglycerin 1,000 MCG/10 ML VIAL IV ONE (10:30)
[2019-12-28] MEDS ORDERED: Heparin 1,000 UNITS/500 mL 500 ML ONE (10:30)
[2019-12-28] MEDS ORDERED: ISOVUE-370 200 ML INFUS..BTL ONE ×2 (10:30→10:36)
[2019-12-28] MEDS ORDERED: 0.9 % Sodium Chloride 1,000 ML IVC SCH ×2 (10:45→14:45)
[2019-12-28] MEDS ORDERED: lisinopriL 5 MG TABLET PO SCH (10:45)
[2019-12-28] MEDS ORDERED: *HR* Midazolam HCl 2 MG/2 ML VIAL ONE (10:58)
[2019-12-28 11:43] LABS: Estimated Average Glucose 120 mg/dl
[2019-12-28 14:54] LABS: Albumin 3.6 g/dL (3.5-5.7); Albumin/Globulin Ratio 1.4 (1.1-2.2); Bilirubin,Direct 0.2 mg/dL (0.0-0.2); Bilirubin,Indirect 0.4 mg/dL (0.0-1.0); Bilirubin,Total 0.6 mg/dL (0.3-1.0); Globulin 2.6 g/dL (2.4-3.5); Total Protein 6.2 g/dL (6.4-8.9)
[2019-12-28] MEDS ORDERED: CeFAZolin Syr 2,000MG/20 ML 2,000 MG/20 ML SYRINGE IVPB ONE (15:42)
[2019-12-28] MEDS: Heparin 25,000 UNIT/250 ML D5W 25,000 UNIT/250 ML IV.SOLN IVC SCH (16:54)
[2019-12-29 00:41] LABS: Basophils # 0.1 K/mcL (0.0-0.2); Basophils % 0.8 %; Eosinophils # 0.1 K/mcL (0.0-0.6); Eosinophils % 1.7 %; Hemoglobin 13.4 g/dL (11.5-15.4); Immature Granulocytes % 0.2 % (0-4); Lymphocytes # 2.4 K/mcL (0.6-4.6); Lymphocytes % 28.3 %; Mean Corpuscular HGB Conc 30.5 g/dL (31.6-35.5); Mean Corpuscular Hemoglobin 30.1 pg (28.0-33.3); Mean Corpuscular Volume 98.9 fL (83.0-100.0); Mean Platelet Volume 10.3 fL (9.4-12.4); Monocytes # 0.9 K/mcL (0.0-1.3); Monocytes % 10.3 %; Neutrophils # 4.9 K/mcL (1.6-8.9); Platelet Count 234 K/mcL (140-400); Prothrombin Time 11.4 Seconds (9.4-12.1); Red Blood Count 4.45 M/mcL (3.82-4.97); Red Cell Distribution Width 13.6 % (11.5-14.5); Segmented Neutrophils % 58.7 %; White Blood Count 8.4 K/mcL (4.3-11.1)
[2019-12-29] MEDS: clonazePAM 0.5 MG TABLET PO PRN (00:46)
[2019-12-29 00:50] LABS: BUN/Creatinine Ratio 16 (6-26); Blood Urea Nitrogen 9 mg/dL (6-20); Calcium 8.5 mg/dL (8.6-10.3); Carbon Dioxide 30 mEq/L (23-29); Chloride 105 mEq/L (98-107); Glucose 91 mg/dL (70-105); Osmolality,Calculated 284 (280-300); Potassium 3.6 mEq/L (3.5-5.1); Sodium 138 mEq/L (136-145); eGFR For African Americans > 60 (> 60); eGFR For Non-African Americans > 60 (> 60)
[2019-12-29 06:01] LABS: Bilirubin,Urine Negative (Negative); Blood,Urine Negative (Negative); Clarity,Urine Clear (Clear); Color,Urine Yellow (Yellow); Glucose,Urine (UA) Normal (Normal); Ketones,Urine Negative (Negative); Leukocyte Esterase,Urine Negative (Negative); Nitrite,Urine Negative (Negative); Protein,Urine Negative (Neg-Trace); Specific Gravity,Urine 1.011 (1.010-1.025); Urobilinogen,Urine Normal (Normal)
[2019-12-29] MEDS: Aspirin 81 MG TAB.CHEW PO SCH (09:38)
[2019-12-29] MEDS: Nicotine 14 MG PATCH.TD24 TD SCH (09:38)
[2019-12-29] MEDS: Heparin 25,000 UNIT/250 ML D5W 25,000 UNIT/250 ML IV.SOLN IVC SCH (20:31)
[2019-12-30] MEDS: clonazePAM 0.5 MG TABLET PO PRN (00:03)
[2019-12-30] MEDS: Aspirin 81 MG TAB.CHEW PO SCH (07:08)
[2019-12-30] MEDS: Nicotine 14 MG PATCH.TD24 TD SCH (07:08)
[2019-12-30] MEDS ORDERED: amLODIPine 5 MG TABLET PO SCH (09:00)
[2019-12-30] MEDS: Chlorhexidine Rinse 15 ML MOUTHWASH MM SCH (20:31)
[2019-12-30] MEDS: Heparin 25,000 UNIT/250 ML D5W 25,000 UNIT/250 ML IV.SOLN IVC SCH (20:47)
[2019-12-31] MEDS: Heparin 25,000 UNIT/250 ML D5W 25,000 UNIT/250 ML IV.SOLN IVC SCH ×2 (00:08→17:42)
[2019-12-31] MEDS: clonazePAM 0.5 MG TABLET PO PRN (00:11)
[2019-12-31 03:11] LABS: BUN/Creatinine Ratio 13 (6-26); Blood Urea Nitrogen 6 mg/dL (6-20); Calcium 8.8 mg/dL (8.6-10.3); Carbon Dioxide 28 mEq/L (23-29); Chloride 107 mEq/L (98-107); Glucose 97 mg/dL (70-105); Osmolality,Calculated 290 (280-300); Potassium 3.5 mEq/L (3.5-5.1); Sodium 141 mEq/L (136-145); eGFR For African Americans > 60 (> 60); eGFR For Non-African Americans > 60 (> 60)
[2019-12-31 04:39] LABS: Basophils # 0.1 K/mcL (0.0-0.2); Basophils % 0.8 %; Eosinophils # 0.3 K/mcL (0.0-0.6); Eosinophils % 3.9 %; Hematocrit 44.5 % (35.3-44.9); Immature Granulocytes % 0.3 % (0-4); Lymphocytes # 1.7 K/mcL (0.6-4.6); Lymphocytes % 25.8 %; Mean Corpuscular HGB Conc 31.5 g/dL (31.6-35.5); Mean Corpuscular Hemoglobin 30.7 pg (28.0-33.3); Mean Corpuscular Volume 97.6 fL (83.0-100.0); Mean Platelet Volume 10.8 fL (9.4-12.4); Monocytes # 0.9 K/mcL (0.0-1.3); Monocytes % 13.3 %; Neutrophils # 3.6 K/mcL (1.6-8.9); Platelet Count 199 K/mcL (140-400); Red Blood Count 4.56 M/mcL (3.82-4.97); Red Cell Distribution Width 13.8 % (11.5-14.5); Segmented Neutrophils % 55.9 %; White Blood Count 6.5 K/mcL (4.3-11.1)
[2019-12-31 05:57] LABS: Prothrombin Time 11.7 Seconds (9.4-12.1)
[2019-12-31] MEDS ORDERED: CeFAZolin Syr 2,000MG/20 ML 2,000 MG/20 ML SYRINGE IVPB ONE (06:00)
[2019-12-31] MEDS ORDERED: Insulin Human Regular 100 UNIT in 0.9 % Sodium Chloride 100 ML IV PRN (06:00)
[2019-12-31] MEDS ORDERED: Heparin 15,000 UNIT in 0.9 % Sodium Chloride 500 ML IV ONE (06:00)
[2019-12-31] MEDS ORDERED: Norepinephrine 4 MG in 0.9 % Sodium Chloride 250 ML IVC PRN (06:00)
[2019-12-31] MEDS ORDERED: Dextrose 50 % in Water (Vial) 30 ML, Sodium Bicarbonate 20 MEQ, Lidocaine 1% 5 ML, Insu... TH ONE ×3 (06:00)
[2019-12-31] MEDS ORDERED: Dextrose 50 % in Water (Vial) 30 ML, Sodium Bicarbonate 20 MEQ, Potassium Chloride 15 M... TH ONE (06:00)
[2019-12-31] MEDS: Chlorhexidine Rinse 15 ML MOUTHWASH MM SCH ×2 (06:02→21:23)
[2019-12-31] MEDS ORDERED: NiCARdipine 2.5 MG/10 ML Syringe IVPB ONE (06:29)
[2019-12-31] MEDS ORDERED: *HR* Rocuronium Bromide 50 MG/5 ML VIAL ONE ×2 (06:46→11:52)
[2019-12-31] MEDS ORDERED: *HR* PHENYLEPHRINE 1,000 MCG/10 ML SYRINGE IVP ONE (06:46)
[2019-12-31] MEDS ORDERED: *HR* Etomidate 20 MG/10 ML AMPUL IVP ONE (06:47)
[2019-12-31] MEDS ORDERED: Famotidine 20 MG/2 ML VIAL ONE (06:47)
[2019-12-31] MEDS ORDERED: Tranexamic Acid 1,000 MG/10 ML VIAL ONE ×2 (06:49→10:35)
[2019-12-31] MEDS ORDERED: Calcium Gluconate 1,000 MG/10 ML VIAL ONE (06:49)
[2019-12-31] MEDS ORDERED: Protamine Sulfate 250 MG/25 ML VIAL IVP ONE (06:49)
[2019-12-31] MEDS ORDERED: *HR* Midazolam HCl 5 MG/5 ML VIAL IVP ONE (06:51)
[2019-12-31] MEDS ORDERED: *HR* FentaNYL (PF) 1,000 MCG/20 ML VIAL ONE (06:51)
[2019-12-31 08:22] LABS: ABG Base Excess 2 mEq/L (-2 to 3); ABG Chloride 103 mEq/L (98-107); ABG Glucose 94 mg/dL (60-95); ABG HCO3 31 mEq/L (21-27); ABG Ionized Calcium 1.21 mmol/L (1.15-1.35); ABG Oxygen Saturation 100 % (95-98); ABG PCO2 69 mmHg (35-45); ABG PH 7.27 pH Units (7.32-7.45); ABG PO2 218 mmHg (85-104); ABG TCO2 33 mEq/L (20-26)
[2019-12-31] MEDS ORDERED: *HR* Magnesium Sulfate 2 GM/50 ML PIGGYBACK IVPB ONE (09:36)
[2019-12-31] MEDS ORDERED: Mannitol 25% vial 12.5 GM/50 ML VIAL IVP ONE (09:36)
[2019-12-31] MEDS ORDERED: Tranexamic Acid 1,000 MG/10 ML VIAL IVP ONE (09:36)
[2019-12-31] MEDS ORDERED: *HR* Phenylephrine 10 MG/ML VIAL IVC ONE (09:36)
[2019-12-31] MEDS ORDERED: Sodium Bicarbonate 50 MEQ/50 ML VIAL IVC ONE (09:36)
[2019-12-31] MEDS ORDERED: *HR* Heparin 10,000 UNIT/10 ML VIAL IV ONE (09:36)
[2019-12-31] MEDS ORDERED: Albumin Human 25% 25 GM/100 ML IV.SOLN IV ONE (09:36)
[2019-12-31] MEDS ORDERED: Lidocaine 2% Syringe 100 MG/5 ML IV ONE (09:36)
[2019-12-31 09:42] LABS: ABG Base Excess 0 mEq/L (-2 to 3); ABG Chloride 103 mEq/L (98-107); ABG Glucose 110 mg/dL (60-95); ABG HCO3 27 mEq/L (21-27); ABG Ionized Calcium 0.97 mmol/L (1.15-1.35); ABG Oxygen Saturation 99 % (95-98); ABG PCO2 55 mmHg (35-45); ABG PO2 165 mmHg (85-104); ABG TCO2 29 mEq/L (20-26)
[2019-12-31 10:19] LABS: ABG Base Excess 7 mEq/L (-2 to 3); ABG Chloride 100 mEq/L (98-107); ABG Glucose 164 mg/dL (60-95); ABG HCO3 31 mEq/L (21-27); ABG Ionized Calcium 0.93 mmol/L (1.15-1.35); ABG PCO2 44 mmHg (35-45); ABG PH 7.46 pH Units (7.32-7.45); ABG PO2 > 630 mmHg (85-104); ABG TCO2 33 mEq/L (20-26)
[2019-12-31] MEDS ORDERED: *HR* Amiodarone 150 MG/3 ML VIAL IVPB ONE (10:56)
[2019-12-31] MEDS ORDERED: Amiodarone Premix 360 MG/200 ML BAG IVC ONE ×2 (10:56→12:36)
[2019-12-31 11:04] LABS: ABG Base Excess 7 mEq/L (-2 to 3); ABG Chloride 97 mEq/L (98-107); ABG Glucose 117 mg/dL (60-95); ABG HCO3 30 mEq/L (21-27); ABG Oxygen Saturation 100 % (95-98); ABG PCO2 38 mmHg (35-45); ABG PH 7.51 pH Units (7.32-7.45); ABG PO2 511 mmHg (85-104); ABG TCO2 31 mEq/L (20-26)
[2019-12-31] MEDS ORDERED: Albumin Human 5% 12.5 GM/250 ML IV.SOLN ONE ×2 (11:28→11:34)
[2019-12-31 11:45] LABS: ABG Base Excess 1 mEq/L (-2 to 3); ABG Chloride 101 mEq/L (98-107); ABG Glucose 86 mg/dL (60-95); ABG HCO3 26 mEq/L (21-27); ABG Ionized Calcium 1.43 mmol/L (1.15-1.35); ABG Oxygen Saturation 95 % (95-98); ABG PCO2 45 mmHg (35-45); ABG PH 7.38 pH Units (7.32-7.45); ABG PO2 79 mmHg (85-104); ABG TCO2 28 mEq/L (20-26)
[2019-12-31] MEDS ORDERED: Protamine Sulfate 50 MG/5 ML VIAL IVP ONE (11:46)
[2019-12-31] MEDS ORDERED: Potassium Chloride 40 MEQ/200 ML BAG IVPB PRN (12:34)
[2019-12-31] MEDS ORDERED: Insulin Regular, Human 100 UNIT/ML IV PRN (12:34)
[2019-12-31] MEDS ORDERED: *HR* Dextrose 50 % in Water (Syg) 50 ML SYRINGE IVP PRN (12:34)
[2019-12-31] MEDS ORDERED: *HR* FentaNYL (PF) 100 MCG/2 ML VIAL IVP PRN (12:36)
[2019-12-31] MEDS ORDERED: Acetaminophen 650 MG RECTAL SUPP RC PRN (12:36)
[2019-12-31] MEDS ORDERED: Calcium Gluconate 1gm/50mL 1 GM/50 ML BAG IVPB PRN (12:36)
[2019-12-31 13:19] LABS: ABG Base Excess 4 mEq/L (-2 to 3); ABG HCO3 30 mEq/L (21-27); ABG Oxygen Saturation 97 % (95-98); ABG PCO2 49 mmHg (35-45); ABG PO2 92 mmHg (85-104); ABG TCO2 32 mEq/L (20-26); Blood Gas Modality ASSIST CONTROL; Blood Gas VT 500 cc
[2019-12-31 13:28] LABS: Basophils # 0.1 K/mcL (0.0-0.2); Basophils % 0.4 %; Eosinophils # 0.3 K/mcL (0.0-0.6); Eosinophils % 1.4 %; Hematocrit 41.1 % (35.3-44.9); Hemoglobin 12.9 g/dL (11.5-15.4); Immature Granulocytes % 0.9 % (0-4); Lymphocytes # 1.5 K/mcL (0.6-4.6); Lymphocytes % 8.3 %; Mean Corpuscular HGB Conc 31.4 g/dL (31.6-35.5); Mean Corpuscular Hemoglobin 30.3 pg (28.0-33.3); Mean Corpuscular Volume 96.5 fL (83.0-100.0); Mean Platelet Volume 10.1 fL (9.4-12.4); Monocytes % 5.6 %; Neutrophils # 15.3 K/mcL (1.6-8.9); Platelet Count 172 K/mcL (140-400); Red Blood Count 4.26 M/mcL (3.82-4.97); Red Cell Distribution Width 13.8 % (11.5-14.5); Segmented Neutrophils % 83.4 %
[2019-12-31 13:29] LABS: White Blood Count 18.3 K/mcL (4.3-11.1)
[2019-12-31 13:36] LABS: INR 1.5; Prothrombin Time 16.9 Seconds (9.4-12.1)
[2019-12-31 13:38] LABS: Activated Partial Thrombo Time 40.8 Seconds (26.0-36.0)
[2019-12-31 13:42] LABS: BUN/Creatinine Ratio 10 (6-26); Blood Urea Nitrogen 6 mg/dL (6-20); Carbon Dioxide 33 mEq/L (23-29); Chloride 108 mEq/L (98-107); Glucose 208 mg/dL (70-105); Magnesium 2.6 mg/dL (1.6-2.6); Osmolality,Calculated 300 (280-300); Potassium 3.6 mEq/L (3.5-5.1); Sodium 143 mEq/L (136-145); eGFR For African Americans > 60 (> 60); eGFR For Non-African Americans > 60 (> 60)
[2019-12-31] MEDS: *HR* OxyCODONE/APAP 5/325 TABLET PO PRN ×2 (14:12→18:36)
[2019-12-31] MEDS: Pantoprazole 40 MG VIAL IVP SCH (14:12)
[2019-12-31] MEDS: 0.9 % Sodium Chloride w KCl 20 MEQ/1,000 ML MLS IVC SCH (14:13)
[2019-12-31] MEDS: Insulin Human Regular 100 UNIT in 0.9 % Sodium Chloride 100 ML IVC SCH (16:33)
[2019-12-31 16:45] LABS: ABG Base Excess 5 mEq/L (-2 to 3); ABG HCO3 32 mEq/L (21-27); ABG Oxygen Saturation 93 % (95-98); ABG PCO2 59 mmHg (35-45); ABG PH 7.35 pH Units (7.32-7.45); ABG PO2 74 mmHg (85-104); ABG TCO2 34 mEq/L (20-26); Blood Gas Modality ASSIST CONTROL; Blood Gas VT 500 cc
[2019-12-31] MEDS: niCARdipine 20 MG in 0.9 % Sodium Chloride 192 ML IVC SCH ×2 (16:45→21:40)
[2019-12-31] MEDS: Norepinephrine 4 MG in 0.9 % Sodium Chloride 250 ML IVC SCH (16:46)
[2019-12-31] MEDS: Amiodarone Premix 360 MG/200 ML BAG IVC SCH (16:51)
[2019-12-31] MEDS: Nicotine 14 MG PATCH.TD24 TD SCH (16:52)
[2019-12-31] MEDS: ceFAZolin 2,000 MG in 0.9 % Sodium Chloride 100 ML IVPB SCH (16:57)
[2019-12-31] MEDS: Albumin Human 5% 12.5 GM/250 ML IV.SOLN IVPB PRN ×2 (18:18→18:37)
[2019-12-31] MEDS: Metoclopramide 10 MG/2 ML VIAL IVP SCH (18:19)
[2019-12-31 21:01] LABS: ABG Base Excess 7 mEq/L (-2 to 3); ABG HCO3 34 mEq/L (21-27); ABG Oxygen Saturation 94 % (95-98); ABG PCO2 60 mmHg (35-45); ABG PH 7.36 pH Units (7.32-7.45); ABG PO2 76 mmHg (85-104); ABG TCO2 36 mEq/L (20-26); Blood Gas Modality VC; Blood Gas VT 500 cc
[2020-01-01] MEDS: ceFAZolin 2,000 MG in 0.9 % Sodium Chloride 100 ML IVPB SCH
[2020-01-01] MEDS: Metoclopramide 10 MG/2 ML VIAL IVP SCH ×5 (00:01→23:48)
[2020-01-01 00:52] LABS: ABG Base Excess 7 mEq/L (-2 to 3); ABG HCO3 34 mEq/L (21-27); ABG Oxygen Saturation 94 % (95-98); ABG PCO2 59 mmHg (35-45); ABG PH 7.36 pH Units (7.32-7.45); ABG PO2 74 mmHg (85-104); ABG TCO2 35 mEq/L (20-26); Blood Gas Modality VC; Blood Gas VT 500 cc
[2020-01-01] MEDS: *HR* OxyCODONE/APAP 5/325 TABLET PO PRN ×4 (03:51→21:59)
[2020-01-01] MEDS: Amiodarone Premix 360 MG/200 ML BAG IVC SCH ×2 (03:52→18:12)
[2020-01-01 04:24] LABS: Basophils % 0.3 %; Red Cell Distribution Width 14.1 % (11.5-14.5)
[2020-01-01 04:26] LABS: Eosinophils % 0.2 %; Hematocrit 36.9 % (35.3-44.9); Hemoglobin 11.3 g/dL (11.5-15.4); INR 1.3; Immature Granulocytes % 0.5 % (0-4); Immature Platelets 5.8 % (1.1-6.1); Lymphocytes # 0.7 K/mcL (0.6-4.6); Lymphocytes % 6.5 %; Mean Corpuscular HGB Conc 30.6 g/dL (31.6-35.5); Mean Corpuscular Volume 97.9 fL (83.0-100.0); Mean Platelet Volume 10.9 fL (9.4-12.4); Neutrophils # 8.6 K/mcL (1.6-8.9); Platelet Count 129 K/mcL (140-400); Prothrombin Time 14.4 Seconds (9.4-12.1); Red Blood Count 3.77 M/mcL (3.82-4.97); Segmented Neutrophils % 82.5 %; White Blood Count 10.4 K/mcL (4.3-11.1)
[2020-01-01 04:29] LABS: Activated Partial Thrombo Time 34.2 Seconds (26.0-36.0)
[2020-01-01 04:46] LABS: BUN/Creatinine Ratio 11 (6-26); Blood Urea Nitrogen 7 mg/dL (6-20); Calcium 8.2 mg/dL (8.6-10.3); Carbon Dioxide 31 mEq/L (23-29); Chloride 108 mEq/L (98-107); Glucose 115 mg/dL (70-105); Magnesium 2.1 mg/dL (1.6-2.6); Osmolality,Calculated 299 (280-300); Potassium 3.9 mEq/L (3.5-5.1); Sodium 145 mEq/L (136-145); eGFR For African Americans > 60 (> 60); eGFR For Non-African Americans > 60 (> 60)
[2020-01-01 04:55] LABS: ABG Base Excess 7 mEq/L (-2 to 3); ABG HCO3 34 mEq/L (21-27); ABG Oxygen Saturation 96 % (95-98); ABG PCO2 61 mmHg (35-45); ABG PH 7.36 pH Units (7.32-7.45); ABG PO2 87 mmHg (85-104); ABG TCO2 36 mEq/L (20-26); Blood Gas Modality ASSIST CONTROL; Blood Gas VT 500 cc
[2020-01-01] MEDS: Nicotine 14 MG PATCH.TD24 TD SCH (07:57)
[2020-01-01] MEDS: Pantoprazole 40 MG VIAL IVP SCH (07:57)
[2020-01-01] MEDS: Furosemide 20 MG/2 ML VIAL IVP SCH ×2 (07:57→19:47)
[2020-01-01] MEDS: Chlorhexidine Rinse 15 ML MOUTHWASH MM SCH ×2 (07:58→19:47)
[2020-01-01] MEDS: Insulin Human Regular 100 UNIT in 0.9 % Sodium Chloride 100 ML IVC SCH (08:00)
[2020-01-01 08:59] LABS: ABG Base Excess 8 mEq/L (-2 to 3); ABG HCO3 35 mEq/L (21-27); ABG Oxygen Saturation 94 % (95-98); ABG PCO2 59 mmHg (35-45); ABG PH 7.38 pH Units (7.32-7.45); ABG PO2 74 mmHg (85-104); ABG TCO2 37 mEq/L (20-26); Blood Gas Modality ASSIST CONTROL; Blood Gas Pressure Support 5 cm H2O
[2020-01-01] MEDS: 0.9 % Sodium Chloride w KCl 20 MEQ/1,000 ML MLS IVC SCH (09:38)
[2020-01-01] MEDS: Aspirin Enteric Coated 81 MG Tablet PO SCH (10:59)
[2020-01-01 11:03] LABS: ABG Base Excess 7 mEq/L (-2 to 3); ABG HCO3 35 mEq/L (21-27); ABG Oxygen Saturation 87 % (95-98); ABG PCO2 61 mmHg (35-45); ABG PH 7.36 pH Units (7.32-7.45); ABG PO2 56 mmHg (85-104); ABG TCO2 37 mEq/L (20-26)
[2020-01-01] MEDS: Ipratropium/Albuterol Neb 3 ML IH SCH ×3 (11:06→20:11)
[2020-01-01] MEDS: Norepinephrine 4 MG in 0.9 % Sodium Chloride 250 ML IVC SCH (13:14)
[2020-01-01] MEDS: clonazePAM 0.5 MG TABLET PO PRN (21:59)
[2020-01-02] MEDS: Ipratropium/Albuterol Neb 3 ML IH SCH ×7 (00:03→23:39)
[2020-01-02] MEDS: *HR* OxyCODONE/APAP 5/325 TABLET PO PRN ×4 (03:01→21:27)
[2020-01-02 03:57] LABS: Hemoglobin 11.7 g/dL (11.5-15.4)
[2020-01-02 03:59] LABS: Basophils % 0.2 %; Eosinophils # 0.2 K/mcL (0.0-0.6); Eosinophils % 1.6 %; Hematocrit 37.7 % (35.3-44.9); Immature Granulocytes % 0.5 % (0-4); Immature Platelets 6.6 % (1.1-6.1); Lymphocytes # 1.3 K/mcL (0.6-4.6); Lymphocytes % 10.3 %; Mean Corpuscular Hemoglobin 30.2 pg (28.0-33.3); Mean Corpuscular Volume 97.2 fL (83.0-100.0); Mean Platelet Volume 10.8 fL (9.4-12.4); Monocytes # 1.5 K/mcL (0.0-1.3); Neutrophils # 9.5 K/mcL (1.6-8.9); Platelet Count 131 K/mcL (140-400); Red Blood Count 3.88 M/mcL (3.82-4.97); Red Cell Distribution Width 14.4 % (11.5-14.5); Segmented Neutrophils % 75.4 %; White Blood Count 12.6 K/mcL (4.3-11.1)
[2020-01-02 04:12] LABS: Alanine Aminotransferase 12 Units/L (7-52); Albumin 3.4 g/dL (3.5-5.7); Albumin/Globulin Ratio 1.8 (1.1-2.2); Alkaline Phosphatase 71 Units/L (34-104); Aspartate Amino Transferase 19 Units/L (13-39); BUN/Creatinine Ratio 16 (6-26); Bilirubin,Direct 0.3 mg/dL (0.0-0.2); Bilirubin,Indirect 0.7 mg/dL (0.0-1.0); Blood Urea Nitrogen 8 mg/dL (6-20); Calcium 8.1 mg/dL (8.6-10.3); Carbon Dioxide 31 mEq/L (23-29); Chloride 102 mEq/L (98-107); Globulin 1.9 g/dL (2.4-3.5); Glucose 117 mg/dL (70-105); Osmolality,Calculated 289 (280-300); Potassium 3.9 mEq/L (3.5-5.1); Sodium 140 mEq/L (136-145); Total Protein 5.3 g/dL (6.4-8.9); eGFR For African Americans > 60 (> 60); eGFR For Non-African Americans > 60 (> 60)
[2020-01-02 04:23] LABS: Platelet Estimate Normal (Normal)
[2020-01-02] MEDS: Metoclopramide 10 MG/2 ML VIAL IVP SCH ×3 (05:18→17:21)
[2020-01-02] MEDS: Amiodarone Premix 360 MG/200 ML BAG IVC SCH (05:18)
[2020-01-02] MEDS: Aspirin Enteric Coated 81 MG Tablet PO SCH (07:57)
[2020-01-02] MEDS: Pantoprazole 40 MG VIAL IVP SCH (07:58)
[2020-01-02] MEDS: Chlorhexidine Rinse 15 ML MOUTHWASH MM SCH ×2 (07:58→20:26)
[2020-01-02] MEDS: Furosemide 20 MG/2 ML VIAL IVP SCH ×2 (07:58→20:26)
[2020-01-02] MEDS: Nicotine 14 MG PATCH.TD24 TD SCH (07:58)
[2020-01-02] MEDS: amLODIPine 5 MG TABLET PO SCH (07:58)
[2020-01-02] MEDS: Budesonide/Formoterol 160/4.5 1 PUFF INH IH SCH ×2 (08:29→20:19)
[2020-01-02] MEDS: 0.9 % Sodium Chloride w KCl 20 MEQ/1,000 ML MLS IVC SCH ×2 (08:44→23:06)
[2020-01-02] MEDS: *HR* Amiodarone 200 MG TABLET PO SCH (12:18)
[2020-01-02] MEDS: *HR* Heparin 5,000 UNIT/ML VIAL SQ SCH ×2 (12:18→17:21)
[2020-01-02] MEDS: clonazePAM 0.5 MG TABLET PO PRN (13:06)
[2020-01-02] MEDS: niCARdipine 20 MG in 0.9 % Sodium Chloride 192 ML IVC SCH (13:08)
[2020-01-02] MEDS: Insulin Human Regular 100 UNIT in 0.9 % Sodium Chloride 100 ML IVC SCH (13:09)
[2020-01-02] MEDS: Norepinephrine 4 MG in 0.9 % Sodium Chloride 250 ML IVC SCH (13:09)
[2020-01-02] MEDS ORDERED: clonazePAM 0.5 MG TABLET PO PRN (14:59)
[2020-01-03] MEDS: Metoclopramide 10 MG/2 ML VIAL IVP SCH ×2 (00:09→06:18)
[2020-01-03] MEDS: Ipratropium/Albuterol Neb 3 ML IH SCH ×6 (03:41→23:40)
[2020-01-03] MEDS: *HR* Heparin 5,000 UNIT/ML VIAL SQ SCH ×2 (06:18→18:32)
[2020-01-03] MEDS: *HR* OxyCODONE/APAP 5/325 TABLET PO PRN ×2 (06:36→19:32)
[2020-01-03] MEDS: Budesonide/Formoterol 160/4.5 1 PUFF INH IH SCH ×3 (08:21→20:06)
[2020-01-03] MEDS: *HR* Amiodarone 200 MG TABLET PO SCH (08:39)
[2020-01-03] MEDS: amLODIPine 5 MG TABLET PO SCH (08:39)
[2020-01-03] MEDS: Aspirin Enteric Coated 81 MG Tablet PO SCH (08:39)
[2020-01-03] MEDS: Chlorhexidine Rinse 15 ML MOUTHWASH MM SCH ×2 (08:39→20:55)
[2020-01-03] MEDS: Nicotine 14 MG PATCH.TD24 TD SCH (08:40)
[2020-01-03] MEDS: Furosemide 20 MG/2 ML VIAL IVP SCH (08:41)
[2020-01-03] MEDS ORDERED: Dextrose Gel 15 GM/37.5 ML TUBE PO PRN ×2 (09:32)
[2020-01-03] MEDS ORDERED: *HR* Dextrose 50 % in Water (Syg) 50 ML SYRINGE IVP PRN (09:32)
[2020-01-03] MEDS ORDERED: Morphine Sulfate 2 MG/ML SYRINGE IVP PRN (09:32)
[2020-01-03] MEDS ORDERED: Acetaminophen 325 MG TABLET PO PRN (09:32)
[2020-01-03] MEDS ORDERED: Naloxone 0.4 MG/ML INJ IVP PRN (09:32)
[2020-01-03] MEDS ORDERED: Ondansetron 4 MG/2 ML VIAL IVP PRN (09:32)
[2020-01-03] MEDS ORDERED: D5% in Water 1,000 ML IVC PRN (09:32)
[2020-01-03] MEDS: Insulin LISPRO 300 UNITS/3 ML VIAL SQ SCH ×3 (13:13→20:48)
[2020-01-03] MEDS: clonazePAM 0.5 MG TABLET PO PRN (20:59)
[2020-01-03] MEDS ORDERED: Furosemide 20 MG/2 ML VIAL IVP SCH (21:00)
[2020-01-04] MEDS: Ipratropium/Albuterol Neb 3 ML IH SCH ×6 (03:29→23:43)
[2020-01-04] MEDS: *HR* Heparin 5,000 UNIT/ML VIAL SQ SCH ×2 (06:27→17:12)
[2020-01-04 06:33] LABS: Basophils # 0.1 K/mcL (0.0-0.2); Basophils % 0.5 %; Eosinophils # 0.3 K/mcL (0.0-0.6); Eosinophils % 3.5 %; Hematocrit 36.7 % (35.3-44.9); Hemoglobin 11.3 g/dL (11.5-15.4); Immature Granulocytes % 0.7 % (0-4); Lymphocytes # 1.2 K/mcL (0.6-4.6); Lymphocytes % 13.2 %; Mean Corpuscular HGB Conc 30.8 g/dL (31.6-35.5); Mean Corpuscular Hemoglobin 30.1 pg (28.0-33.3); Mean Corpuscular Volume 97.6 fL (83.0-100.0); Mean Platelet Volume 10.7 fL (9.4-12.4); Monocytes # 1.1 K/mcL (0.0-1.3); Monocytes % 11.6 %; Neutrophils # 6.6 K/mcL (1.6-8.9); Platelet Count 175 K/mcL (140-400); Red Blood Count 3.76 M/mcL (3.82-4.97); Red Cell Distribution Width 13.9 % (11.5-14.5); Segmented Neutrophils % 70.5 %; White Blood Count 9.4 K/mcL (4.3-11.1)
[2020-01-04 06:46] LABS: BUN/Creatinine Ratio 24 (6-26); Blood Urea Nitrogen 11 mg/dL (6-20); Calcium 8.1 mg/dL (8.6-10.3); Carbon Dioxide 31 mEq/L (23-29); Chloride 99 mEq/L (98-107); Glucose 85 mg/dL (70-105); Osmolality,Calculated 285 (280-300); Potassium 3.9 mEq/L (3.5-5.1); Sodium 138 mEq/L (136-145); eGFR For African Americans > 60 (> 60); eGFR For Non-African Americans > 60 (> 60)
[2020-01-04] MEDS: Budesonide/Formoterol 160/4.5 1 PUFF INH IH SCH ×2 (07:43→19:59)
[2020-01-04] MEDS: Nicotine 14 MG PATCH.TD24 TD SCH (07:43)
[2020-01-04] MEDS: Chlorhexidine Rinse 15 ML MOUTHWASH MM SCH ×2 (07:45→20:48)
[2020-01-04] MEDS: Aspirin Enteric Coated 81 MG Tablet PO SCH (07:45)
[2020-01-04] MEDS: amLODIPine 5 MG TABLET PO SCH (07:46)
[2020-01-04] MEDS: Insulin LISPRO 300 UNITS/3 ML VIAL SQ SCH ×4 (07:46→20:42)
[2020-01-04] MEDS: *HR* Amiodarone 200 MG TABLET PO SCH (07:46)
[2020-01-04] MEDS: *HR* OxyCODONE/APAP 5/325 TABLET PO PRN ×2 (07:54→20:53)
[2020-01-04] MEDS: clonazePAM 0.5 MG TABLET PO PRN (20:53)
[2020-01-05] MEDS: Ipratropium/Albuterol Neb 3 ML IH SCH ×5 (04:09→19:34)
[2020-01-05 04:35] LABS: BUN/Creatinine Ratio 23 (6-26); Blood Urea Nitrogen 10 mg/dL (6-20); Calcium 8.4 mg/dL (8.6-10.3); Carbon Dioxide 34 mEq/L (23-29); Chloride 98 mEq/L (98-107); Glucose 102 mg/dL (70-105); Osmolality,Calculated 287 (280-300); Potassium 3.2 mEq/L (3.5-5.1); Sodium 139 mEq/L (136-145); eGFR For African Americans > 60 (> 60); eGFR For Non-African Americans > 60 (> 60)
[2020-01-05 04:38] LABS: Basophils # 0.1 K/mcL (0.0-0.2); Basophils % 0.7 %; Eosinophils # 0.3 K/mcL (0.0-0.6); Eosinophils % 3.9 %; Hematocrit 35.8 % (35.3-44.9); Hemoglobin 11.2 g/dL (11.5-15.4); Immature Granulocytes % 0.6 % (0-4); Lymphocytes # 1.5 K/mcL (0.6-4.6); Lymphocytes % 17.8 %; Mean Corpuscular HGB Conc 31.3 g/dL (31.6-35.5); Mean Corpuscular Hemoglobin 30.2 pg (28.0-33.3); Mean Corpuscular Volume 96.5 fL (83.0-100.0); Mean Platelet Volume 10.6 fL (9.4-12.4); Monocytes # 1.1 K/mcL (0.0-1.3); Monocytes % 12.7 %; Neutrophils # 5.4 K/mcL (1.6-8.9); Platelet Count 220 K/mcL (140-400); Red Blood Count 3.71 M/mcL (3.82-4.97); Red Cell Distribution Width 13.9 % (11.5-14.5); Segmented Neutrophils % 64.3 %; White Blood Count 8.5 K/mcL (4.3-11.1)
[2020-01-05] MEDS: *HR* Heparin 5,000 UNIT/ML VIAL SQ SCH ×2 (04:44→17:40)
[2020-01-05] MEDS: Budesonide/Formoterol 160/4.5 1 PUFF INH IH SCH ×2 (07:41→19:34)
[2020-01-05] MEDS: Nicotine 14 MG PATCH.TD24 TD SCH (09:00)
[2020-01-05] MEDS: *HR* Amiodarone 200 MG TABLET PO SCH (09:02)
[2020-01-05] MEDS: Aspirin Enteric Coated 81 MG Tablet PO SCH (09:02)
[2020-01-05] MEDS: Chlorhexidine Rinse 15 ML MOUTHWASH MM SCH ×2 (09:04→20:57)
[2020-01-05] MEDS: Insulin LISPRO 300 UNITS/3 ML VIAL SQ SCH ×3 (09:07→20:58)
[2020-01-05] MEDS ORDERED: Furosemide 20 MG/2 ML VIAL IVP ONE (09:29)
[2020-01-05] MEDS ORDERED: Bisacodyl 10 MG RECTAL SUPPOSITORY RC PRN (09:39)
[2020-01-05] MEDS: amLODIPine 5 MG TABLET PO SCH (13:01)
[2020-01-05] MEDS: *HR* OxyCODONE/APAP 5/325 TABLET PO PRN (21:01)
[2020-01-06] MEDS: Ipratropium/Albuterol Neb 3 ML IH SCH ×7 (00:30→23:41)
[2020-01-06] MEDS: *HR* Heparin 5,000 UNIT/ML VIAL SQ SCH ×2 (04:56→17:49)
[2020-01-06] MEDS: Insulin LISPRO 300 UNITS/3 ML VIAL SQ SCH ×4 (07:30→19:32)
[2020-01-06] MEDS: Budesonide/Formoterol 160/4.5 1 PUFF INH IH SCH ×2 (07:51→19:55)
[2020-01-06] MEDS: Aspirin Enteric Coated 81 MG Tablet PO SCH (08:27)
[2020-01-06] MEDS: amLODIPine 5 MG TABLET PO SCH (08:27)
[2020-01-06] MEDS: Nicotine 14 MG PATCH.TD24 TD SCH (08:28)
[2020-01-06] MEDS: *HR* Amiodarone 200 MG TABLET PO SCH (08:28)
[2020-01-06] MEDS ORDERED: Furosemide 20 MG TABLET PO SCH (09:15)
[2020-01-06 10:04] LABS: BUN/Creatinine Ratio 16 (6-26); Blood Urea Nitrogen 8 mg/dL (6-20); Calcium 8.6 mg/dL (8.6-10.3); Carbon Dioxide 32 mEq/L (23-29); Chloride 99 mEq/L (98-107); Glucose 153 mg/dL (70-105); Osmolality,Calculated 289 (280-300); Potassium 3.4 mEq/L (3.5-5.1); Sodium 139 mEq/L (136-145); eGFR For African Americans > 60 (> 60); eGFR For Non-African Americans > 60 (> 60)
[2020-01-06] MEDS ORDERED: Furosemide 20 MG/2 ML VIAL IVP ONE (10:17)
[2020-01-06] MEDS: Chlorhexidine Rinse 15 ML MOUTHWASH MM SCH ×2 (11:15→19:31)
[2020-01-06] MEDS: clonazePAM 0.5 MG TABLET PO PRN (22:33)
[2020-01-06] MEDS: *HR* OxyCODONE/APAP 5/325 TABLET PO PRN (22:33)
[2020-01-07] MEDS: Ipratropium/Albuterol Neb 3 ML IH SCH ×3 (04:01→11:19)
[2020-01-07] MEDS: *HR* Heparin 5,000 UNIT/ML VIAL SQ SCH (05:25)
[2020-01-07] MEDS: Budesonide/Formoterol 160/4.5 1 PUFF INH IH SCH (07:33)
[2020-01-07] MEDS: Insulin LISPRO 300 UNITS/3 ML VIAL SQ SCH ×2 (07:46→11:58)
[2020-01-07] MEDS: Aspirin Enteric Coated 81 MG Tablet PO SCH (07:55)
[2020-01-07] MEDS: Nicotine 14 MG PATCH.TD24 TD SCH (07:55)
[2020-01-07] MEDS: amLODIPine 5 MG TABLET PO SCH (07:56)
[2020-01-07] MEDS: Chlorhexidine Rinse 15 ML MOUTHWASH MM SCH (07:56)
[2020-01-07] MEDS: *HR* Amiodarone 200 MG TABLET PO SCH (07:56)
[2020-01-07 10:44] VITALS: BP 105/57
== END 2020-01-07 13:03 | disposition home or self-care (01) | DRG 233 ==
LOC: EMEROOARM 15:44 → 2ANU 15:44 → SUATTDRO 12-28 14:48 → ICNU 12-31 13:09
PROVIDERS: ADMIT Internal Medicine; ATTEND Internal Medicine

== ENCOUNTER 2020-11-05 13:03 | Observation (INO) ==
[2020-11-05] MEDS ORDERED: Isovue-370 500 ML BOTTLE IVP ONE (13:40)
[2020-11-05] MEDS ORDERED: 0.9 % Sodium Chloride 1,000 ML IVC ONE (13:46)
[2020-11-05] MEDS ORDERED: Ondansetron 4 MG/2 ML VIAL IVP ONE (13:46)
[2020-11-05 13:55] LABS: Basophils # 0.1 K/mcL (0.0-0.2); Basophils % 0.6 %; Eosinophils # 0.1 K/mcL (0.0-0.6); Eosinophils % 0.8 %; Hematocrit 37.3 % (35.3-44.9); Hemoglobin 11.9 g/dL (11.5-15.4); Immature Granulocytes % 0.5 % (0-4); Lymphocytes # 0.8 K/mcL (0.6-4.6); Lymphocytes % 9.5 %; Mean Corpuscular HGB Conc 31.9 g/dL (31.6-35.5); Mean Corpuscular Hemoglobin 29.2 pg (28.0-33.3); Mean Corpuscular Volume 91.4 fL (83.0-100.0); Monocytes # 0.7 K/mcL (0.0-1.3); Monocytes % 8.7 %; Neutrophils # 6.7 K/mcL (1.6-8.9); Platelet Count 341 K/mcL (140-400); Red Blood Count 4.08 M/mcL (3.82-4.97); Red Cell Distribution Width 18.9 % (11.5-14.5); Segmented Neutrophils % 79.9 %; White Blood Count 8.4 K/mcL (4.3-11.1)
[2020-11-05 13:57] LABS: INR 1.3; Prothrombin Time 14.5 Seconds (9.4-12.1)
[2020-11-05 13:59] LABS: Activated Partial Thrombo Time 30.6 Seconds (26.0-36.0)
[2020-11-05 14:48] LABS: BUN/Creatinine Ratio 8 (6-26); Blood Urea Nitrogen 6 mg/dL (6-20); Calcium 7.9 mg/dL (8.6-10.3); Carbon Dioxide 32 mEq/L (23-29); Chloride 102 mEq/L (98-107); Glucose 112 mg/dL (70-105); Osmolality,Calculated 292 (280-300); Potassium 2.4 mEq/L (3.5-5.1); Sodium 142 mEq/L (136-145); Troponin I < 0.03 ng/mL (< 0.04); eGFR For African Americans > 60 (> 60); eGFR For Non-African Americans > 60 (> 60)
[2020-11-05] MEDS ORDERED: Naloxone 0.4 MG/ML INJ IVP PRN (17:32)
[2020-11-05] MEDS ORDERED: *HR* OxyCODONE/APAP 5/325 TABLET PO PRN (17:40)
[2020-11-05] MEDS ORDERED: 0.9 % Sodium Chloride w KCl 40 MEQ/1,000 ML MLS IVC SCH (17:45)
[2020-11-05 18:01] LABS: Alanine Aminotransferase 46 Units/L (7-52); Albumin 2.6 g/dL (3.5-5.7); Albumin/Globulin Ratio 0.8 (1.1-2.2); Alkaline Phosphatase 152 Units/L (34-104); Aspartate Amino Transferase 85 Units/L (13-39); Bilirubin,Direct 0.3 mg/dL (0.0-0.2); Bilirubin,Indirect 0.6 mg/dL (0.0-1.0); Bilirubin,Total 0.9 mg/dL (0.3-1.0); Globulin 3.3 g/dL (2.4-3.5); Phosphorous 3.6 mg/dL (2.7-4.5); Total Protein 5.9 g/dL (6.4-8.9)
[2020-11-05 22:45] LABS: Potassium 2.6 mEq/L (3.5-5.1)
[2020-11-06 03:47] LABS: Basophils # 0.1 K/mcL (0.0-0.2); Eosinophils # 0.2 K/mcL (0.0-0.6); Eosinophils % 2.7 %; Hematocrit 30.8 % (35.3-44.9); Immature Granulocytes % 0.3 % (0-4); Lymphocytes # 1.3 K/mcL (0.6-4.6); Lymphocytes % 20.9 %; Mean Corpuscular HGB Conc 31.8 g/dL (31.6-35.5); Mean Corpuscular Hemoglobin 29.1 pg (28.0-33.3); Mean Corpuscular Volume 91.4 fL (83.0-100.0); Mean Platelet Volume 10.4 fL (9.4-12.4); Monocytes # 0.7 K/mcL (0.0-1.3); Monocytes % 11.7 %; Platelet Count 269 K/mcL (140-400); Red Blood Count 3.37 M/mcL (3.82-4.97); Red Cell Distribution Width 18.9 % (11.5-14.5); Segmented Neutrophils % 63.4 %; White Blood Count 6.2 K/mcL (4.3-11.1)
[2020-11-06 03:48] LABS: Hemoglobin 9.8 g/dL (11.5-15.4)
[2020-11-06 04:08] LABS: BUN/Creatinine Ratio 9 (6-26); Blood Urea Nitrogen 5 mg/dL (6-20); Calcium 6.9 mg/dL (8.6-10.3); Carbon Dioxide 33 mEq/L (23-29); Chloride 106 mEq/L (98-107); Glucose 74 mg/dL (70-105); Magnesium 1.8 mg/dL (1.6-2.6); Osmolality,Calculated 290 (280-300); Potassium 2.6 mEq/L (3.5-5.1); Sodium 142 mEq/L (136-145); eGFR For African Americans > 60 (> 60); eGFR For Non-African Americans > 60 (> 60)
[2020-11-06] MEDS: *HR* Amiodarone 200 MG TABLET PO SCH (07:54)
[2020-11-06] MEDS: Aspirin Enteric Coated 81 MG Tablet PO SCH (07:54)
[2020-11-06] MEDS: Ondansetron 4 MG/2 ML VIAL IVP PRN ×2 (08:00→21:12)
[2020-11-06 08:10] LABS: Troponin I < 0.03 ng/mL (< 0.04)
[2020-11-06] MEDS ORDERED: Potassium Chloride 40 MEQ, Lidocaine 1% 2 ML in 0.9 % Sodium Chloride 500 ML IVPB ONE (08:24)
[2020-11-06 14:07] LABS: Hematocrit 35.4 % (35.3-44.9); Hemoglobin 11.1 g/dL (11.5-15.4)
[2020-11-06] MEDS ORDERED: Lidocaine -MPF 2% 5 ML VIAL INFILT ONE (14:12)
[2020-11-06] MEDS ORDERED: *HR* Propofol 200 MG/20 ML VIAL IVP ONE (14:12)
[2020-11-06 14:28] LABS: Alanine Aminotransferase 50 Units/L (7-52); Albumin 2.3 g/dL (3.5-5.7); Albumin/Globulin Ratio 0.7 (1.1-2.2); Alkaline Phosphatase 131 Units/L (34-104); Aspartate Amino Transferase 85 Units/L (13-39); BUN/Creatinine Ratio 8 (6-26); Bilirubin,Direct 0.2 mg/dL (0.0-0.2); Bilirubin,Indirect 0.6 mg/dL (0.0-1.0); Bilirubin,Total 0.8 mg/dL (0.3-1.0); Blood Urea Nitrogen 5 mg/dL (6-20); Calcium 7.3 mg/dL (8.6-10.3); Carbon Dioxide 29 mEq/L (23-29); Chloride 107 mEq/L (98-107); Globulin 3.1 g/dL (2.4-3.5); Glucose 87 mg/dL (70-105); Osmolality,Calculated 291 (280-300); Potassium 3.7 mEq/L (3.5-5.1); Sodium 142 mEq/L (136-145); Total Protein 5.4 g/dL (6.4-8.9); eGFR For African Americans > 60 (> 60); eGFR For Non-African Americans > 60 (> 60)
[2020-11-06] MEDS ORDERED: clonazePAM 1 MG TABLET PO PRN (15:38)
[2020-11-06] MEDS ORDERED: Ipratropium/Albuterol Neb 3 ML IH PRN (15:38)
[2020-11-06] MEDS: HYOSCYAMINE SULFATE 0.375 MG PO SCH (21:13)
[2020-11-07] MEDS ORDERED: *HR* Propofol 200 MG/20 ML VIAL IVP ONE (07:15)
[2020-11-07] MEDS ORDERED: Lidocaine -MPF 2% 2 ML VIAL ONE (07:15)
[2020-11-07 07:25] LABS: Basophils # 0.1 K/mcL (0.0-0.2); Eosinophils # 0.2 K/mcL (0.0-0.6); Eosinophils % 2.7 %; Hemoglobin 9.8 g/dL (11.5-15.4); Immature Granulocytes % 0.2 % (0-4); Lymphocytes # 1.3 K/mcL (0.6-4.6); Lymphocytes % 21.3 %; Mean Corpuscular HGB Conc 31.6 g/dL (31.6-35.5); Mean Corpuscular Hemoglobin 29.1 pg (28.0-33.3); Mean Platelet Volume 10.2 fL (9.4-12.4); Monocytes # 0.7 K/mcL (0.0-1.3); Monocytes % 11.3 %; Neutrophils # 3.9 K/mcL (1.6-8.9); Platelet Count 283 K/mcL (140-400); Red Blood Count 3.37 M/mcL (3.82-4.97); Red Cell Distribution Width 19.1 % (11.5-14.5); Segmented Neutrophils % 63.5 %; White Blood Count 6.2 K/mcL (4.3-11.1)
[2020-11-07 07:42] LABS: Alanine Aminotransferase 47 Units/L (7-52); Albumin/Globulin Ratio 0.7 (1.1-2.2); Alkaline Phosphatase 118 Units/L (34-104); Aspartate Amino Transferase 78 Units/L (13-39); BUN/Creatinine Ratio 10 (6-26); Bilirubin,Direct 0.4 mg/dL (0.0-0.2); Bilirubin,Indirect 0.4 mg/dL (0.0-1.0); Bilirubin,Total 0.8 mg/dL (0.3-1.0); Blood Urea Nitrogen 6 mg/dL (6-20); Calcium 7.1 mg/dL (8.6-10.3); Carbon Dioxide 30 mEq/L (23-29); Chloride 108 mEq/L (98-107); Globulin 2.7 g/dL (2.4-3.5); Glucose 74 mg/dL (70-105); Magnesium 1.9 mg/dL (1.6-2.6); Osmolality,Calculated 288 (280-300); Potassium 3.4 mEq/L (3.5-5.1); Sodium 141 mEq/L (136-145); Total Protein 4.7 g/dL (6.4-8.9); eGFR For African Americans > 60 (> 60); eGFR For Non-African Americans > 60 (> 60)
[2020-11-07] MEDS: 0.9 % Sodium Chloride 1,000 ML IVC SCH (07:49)
[2020-11-07] MEDS ORDERED: Potassium Chloride 20 MEQ, Lidocaine 1% 2 ML in 0.9 % Sodium Chloride 250 ML IVPB ONE (07:59)
[2020-11-07] MEDS: *HR* Amiodarone 200 MG TABLET PO SCH (10:19)
[2020-11-07] MEDS: amLODIPine 5 MG TABLET PO SCH (10:20)
[2020-11-07] MEDS: HYOSCYAMINE SULFATE 0.375 MG PO SCH ×2 (10:20→21:06)
[2020-11-07] MEDS: Aspirin Enteric Coated 81 MG Tablet PO SCH (10:20)
[2020-11-07] MEDS: Tiotropium 10 INH DOSE IH SCH (11:55)
[2020-11-07] MEDS: Budesonide/Formoterol 160/4.5 1 PUFF INH IH SCH ×2 (11:56→22:44)
[2020-11-07 19:12] LABS: BUN/Creatinine Ratio 9 (6-26); Blood Urea Nitrogen 6 mg/dL (6-20); Calcium 7.7 mg/dL (8.6-10.3); Carbon Dioxide 28 mEq/L (23-29); Chloride 107 mEq/L (98-107); Glucose 96 mg/dL (70-105); Osmolality,Calculated 289 (280-300); Potassium 3.6 mEq/L (3.5-5.1); Sodium 141 mEq/L (136-145); eGFR For African Americans > 60 (> 60); eGFR For Non-African Americans > 60 (> 60)
[2020-11-08] MEDS: 0.9 % Sodium Chloride 1,000 ML IVC SCH (03:35)
[2020-11-08 03:47] LABS: Hematocrit 36.8 % (35.3-44.9); Mean Corpuscular HGB Conc 31.3 g/dL (31.6-35.5); Mean Corpuscular Volume 92.9 fL (83.0-100.0); Mean Platelet Volume 10.3 fL (9.4-12.4); Platelet Count 312 K/mcL (140-400); Red Blood Count 3.96 M/mcL (3.82-4.97); Red Cell Distribution Width 19.4 % (11.5-14.5)
[2020-11-08 03:48] LABS: Hemoglobin 11.5 g/dL (11.5-15.4)
[2020-11-08 04:09] LABS: Alanine Aminotransferase 56 Units/L (7-52); Albumin 2.3 g/dL (3.5-5.7); Albumin/Globulin Ratio 0.7 (1.1-2.2); Alkaline Phosphatase 139 Units/L (34-104); Aspartate Amino Transferase 83 Units/L (13-39); BUN/Creatinine Ratio 9 (6-26); Bilirubin,Direct 0.3 mg/dL (0.0-0.2); Bilirubin,Indirect 0.6 mg/dL (0.0-1.0); Bilirubin,Total 0.9 mg/dL (0.3-1.0); Blood Urea Nitrogen 6 mg/dL (6-20); Calcium 7.7 mg/dL (8.6-10.3); Carbon Dioxide 28 mEq/L (23-29); Chloride 108 mEq/L (98-107); Globulin 3.2 g/dL (2.4-3.5); Glucose 89 mg/dL (70-105); Osmolality,Calculated 289 (280-300); Potassium 3.6 mEq/L (3.5-5.1); Sodium 141 mEq/L (136-145); Total Protein 5.5 g/dL (6.4-8.9); eGFR For African Americans > 60 (> 60); eGFR For Non-African Americans > 60 (> 60)
[2020-11-08] MEDS: Aspirin Enteric Coated 81 MG Tablet PO SCH (08:14)
[2020-11-08] MEDS: *HR* Amiodarone 200 MG TABLET PO SCH (08:15)
[2020-11-08] MEDS: HYOSCYAMINE SULFATE 0.375 MG PO SCH (08:15)
[2020-11-08] MEDS: amLODIPine 5 MG TABLET PO SCH (08:15)
[2020-11-08] MEDS: Budesonide/Formoterol 160/4.5 1 PUFF INH IH SCH (08:23)
[2020-11-08] MEDS: Tiotropium 10 INH DOSE IH SCH (08:24)
[2020-11-08 10:54] VITALS: BP 97/62
== END 2020-11-08 14:13 | disposition home health service (06) ==
LOC: EMEROOARM 13:03 → 3BNU 13:03
PROVIDERS: ADMIT Internal Medicine; ATTEND Internal Medicine
PROC: ENDOEBX (2020-11-07 08:00)

== ENCOUNTER 2020-11-20 19:38 | Inpatient (IN) ==
[2020-11-20 20:49] LABS: Basophils % 0.3 %; Eosinophils % 0.2 %; Hematocrit 38.3 % (35.3-44.9); Hemoglobin 12.8 g/dL (11.5-15.4); Immature Granulocytes % 0.4 % (0-4); Lymphocytes # 1.3 K/mcL (0.6-4.6); Lymphocytes % 12.8 %; Mean Corpuscular HGB Conc 33.4 g/dL (31.6-35.5); Mean Corpuscular Hemoglobin 29.2 pg (28.0-33.3); Mean Corpuscular Volume 87.2 fL (83.0-100.0); Mean Platelet Volume 9.8 fL (9.4-12.4); Monocytes # 0.8 K/mcL (0.0-1.3); Monocytes % 7.6 %; Neutrophils # 7.8 K/mcL (1.6-8.9); Platelet Count 276 K/mcL (140-400); Red Blood Count 4.39 M/mcL (3.82-4.97); Red Cell Distribution Width 20.1 % (11.5-14.5); Segmented Neutrophils % 78.7 %; White Blood Count 9.9 K/mcL (4.3-11.1)
[2020-11-20] MEDS ORDERED: 0.9 % Sodium Chloride 1,000 ML IVC ONE (21:05)
[2020-11-20 21:10] LABS: Alanine Aminotransferase 85 Units/L (7-52); Albumin 2.5 g/dL (3.5-5.7); Albumin/Globulin Ratio 0.7 (1.1-2.2); Alkaline Phosphatase 194 Units/L (34-104); Aspartate Amino Transferase 123 Units/L (13-39); BUN/Creatinine Ratio 7 (6-26); Bilirubin,Total 1.7 mg/dL (0.3-1.0); Blood Urea Nitrogen 6 mg/dL (6-20); Calcium 7.7 mg/dL (8.6-10.3); Carbon Dioxide 32 mEq/L (23-29); Chloride 96 mEq/L (98-107); Globulin 3.8 g/dL (2.4-3.5); Glucose 90 mg/dL (70-105); Osmolality,Calculated 283 (280-300); Potassium 3.1 mEq/L (3.5-5.1); Sodium 138 mEq/L (136-145); Total Protein 6.3 g/dL (6.4-8.9); eGFR For African Americans > 60 (> 60); eGFR For Non-African Americans > 60 (> 60)
[2020-11-21 00:02] LABS: INR 1.3; Prothrombin Time 15.4 Seconds (9.4-12.1)
[2020-11-21 00:04] LABS: Activated Partial Thrombo Time 29.9 Seconds (26.0-36.0)
[2020-11-21] MEDS ORDERED: Ondansetron 4 MG/2 ML VIAL IVP ONE (00:49)
[2020-11-21] MEDS ORDERED: Ondansetron 4 MG/2 ML VIAL IVP PRN (02:11)
[2020-11-21] MEDS ORDERED: Naloxone 0.4 MG/ML INJ IVP PRN (02:11)
[2020-11-21] MEDS ORDERED: Ipratropium/Albuterol Neb 3 ML IH PRN (02:17)
[2020-11-21] MEDS: 0.9 % Sodium Chloride 1,000 ML IVC SCH ×2 (02:20→17:33)
[2020-11-21] MEDS ORDERED: clonazePAM 1 MG TABLET PO PRN (05:26)
[2020-11-21 06:07] LABS: Hematocrit 34.3 % (35.3-44.9); Hemoglobin 11.6 g/dL (11.5-15.4); Mean Corpuscular HGB Conc 33.8 g/dL (31.6-35.5); Mean Corpuscular Hemoglobin 29.7 pg (28.0-33.3); Mean Corpuscular Volume 87.7 fL (83.0-100.0); Mean Platelet Volume 9.6 fL (9.4-12.4); Platelet Count 249 K/mcL (140-400); Red Blood Count 3.91 M/mcL (3.82-4.97); Red Cell Distribution Width 20.1 % (11.5-14.5); White Blood Count 8.7 K/mcL (4.3-11.1)
[2020-11-21 06:34] LABS: Albumin 2.3 g/dL (3.5-5.7); Albumin/Globulin Ratio 0.7 (1.1-2.2); Bilirubin,Direct 0.3 mg/dL (0.0-0.2); Bilirubin,Indirect 1.4 mg/dL (0.0-1.0); Bilirubin,Total 1.7 mg/dL (0.3-1.0); Globulin 3.3 g/dL (2.4-3.5); Total Protein 5.6 g/dL (6.4-8.9)
[2020-11-21] MEDS ORDERED: Tiotropium 10 INH DOSE IH ONE (07:50)
[2020-11-21] MEDS: *HR* Amiodarone 200 MG TABLET PO SCH (08:01)
[2020-11-21] MEDS: Tiotropium 10 INH DOSE IH SCH (10:57)
[2020-11-21] MEDS: Budesonide/Formoterol 160/4.5 1 PUFF INH IH SCH ×2 (10:57→19:58)
[2020-11-21] MEDS ORDERED: Lactulose Oral Soln 20 GM/30 ML UDC PO ONE (11:45)
[2020-11-21] MEDS: Pantoprazole 40 MG VIAL IVP SCH (14:51)
[2020-11-21] MEDS: Albumin 25% 25gram/100mL 25 GM/100 ML IV.SOLN IVPB SCH ×2 (15:34→23:48)
[2020-11-21] MEDS ORDERED: Dextrose Gel 15 GM/37.5 ML TUBE PO PRN ×2 (16:38)
[2020-11-21] MEDS ORDERED: D5% in Water 1,000 ML IVC PRN (16:38)
[2020-11-21] MEDS ORDERED: *HR* Dextrose 50 % in Water (Vial) 50 ML VIAL IVP PRN (16:38)
[2020-11-22] MEDS ORDERED: D5% in Water 1,000 ML IVC SCH (01:15)
[2020-11-22 06:31] LABS: Basophils % 0.5 %; Eosinophils # 0.1 K/mcL (0.0-0.6); Eosinophils % 1.1 %; Hematocrit 29.4 % (35.3-44.9); Immature Granulocytes % 0.5 % (0-4); Lymphocytes # 1.3 K/mcL (0.6-4.6); Lymphocytes % 19.9 %; Mean Corpuscular HGB Conc 33.3 g/dL (31.6-35.5); Mean Corpuscular Hemoglobin 29.3 pg (28.0-33.3); Mean Corpuscular Volume 87.8 fL (83.0-100.0); Mean Platelet Volume 9.6 fL (9.4-12.4); Monocytes # 0.6 K/mcL (0.0-1.3); Monocytes % 9.5 %; Neutrophils # 4.6 K/mcL (1.6-8.9); Platelet Count 201 K/mcL (140-400); Red Blood Count 3.35 M/mcL (3.82-4.97); Segmented Neutrophils % 68.5 %; White Blood Count 6.6 K/mcL (4.3-11.1)
[2020-11-22 06:33] LABS: Hemoglobin 9.8 g/dL (11.5-15.4)
[2020-11-22 07:00] LABS: Alanine Aminotransferase 60 Units/L (7-52); Albumin/Globulin Ratio 1.3 (1.1-2.2); Alkaline Phosphatase 132 Units/L (34-104); Aspartate Amino Transferase 78 Units/L (13-39); BUN/Creatinine Ratio 8 (6-26); Bilirubin,Total 1.9 mg/dL (0.3-1.0); Blood Urea Nitrogen 6 mg/dL (6-20); Calcium 7.7 mg/dL (8.6-10.3); Carbon Dioxide 32 mEq/L (23-29); Chloride 102 mEq/L (98-107); Globulin 2.4 g/dL (2.4-3.5); Glucose 80 mg/dL (70-105); Osmolality,Calculated 293 (280-300); Potassium 2.2 mEq/L (3.5-5.1); Sodium 143 mEq/L (136-145); Total Protein 5.4 g/dL (6.4-8.9); eGFR For African Americans > 60 (> 60); eGFR For Non-African Americans > 60 (> 60)
[2020-11-22] MEDS ORDERED: Potassium Chloride 40 MEQ, Lidocaine 1% 2 ML in 0.9 % Sodium Chloride 500 ML IVPB ONE (07:01)
[2020-11-22 09:13] LABS: Basophils % 0.4 %; Eosinophils # 0.1 K/mcL (0.0-0.6); Eosinophils % 1.1 %; Hematocrit 32.2 % (35.3-44.9); Hemoglobin 10.8 g/dL (11.5-15.4); Immature Granulocytes % 0.4 % (0-4); Lymphocytes # 1.2 K/mcL (0.6-4.6); Lymphocytes % 16.3 %; Mean Corpuscular HGB Conc 33.5 g/dL (31.6-35.5); Mean Corpuscular Hemoglobin 29.3 pg (28.0-33.3); Mean Corpuscular Volume 87.5 fL (83.0-100.0); Monocytes # 0.6 K/mcL (0.0-1.3); Monocytes % 8.3 %; Neutrophils # 5.3 K/mcL (1.6-8.9); Platelet Count 217 K/mcL (140-400); Red Blood Count 3.68 M/mcL (3.82-4.97); Red Cell Distribution Width 20.4 % (11.5-14.5); Segmented Neutrophils % 73.5 %; White Blood Count 7.2 K/mcL (4.3-11.1)
[2020-11-22 09:16] LABS: VBG HCO3 31 mEq/L (21-27); VBG PCO2 48 mmHg (41-51); VBG PH 7.42 pH Units (7.32-7.42); VBG PO2 151 mmHg (25-50)
[2020-11-22 09:43] LABS: BUN/Creatinine Ratio 9 (6-26); Blood Urea Nitrogen 6 mg/dL (6-20); Calcium 7.7 mg/dL (8.6-10.3); Carbon Dioxide 30 mEq/L (23-29); Chloride 102 mEq/L (98-107); Glucose 82 mg/dL (70-105); Osmolality,Calculated 289 (280-300); Potassium 2.3 mEq/L (3.5-5.1); Sodium 141 mEq/L (136-145); eGFR For African Americans > 60 (> 60); eGFR For Non-African Americans > 60 (> 60)
[2020-11-22] MEDS: Budesonide/Formoterol 160/4.5 1 PUFF INH IH SCH ×2 (10:10→22:22)
[2020-11-22] MEDS: Tiotropium 10 INH DOSE IH SCH (10:10)
[2020-11-22] MEDS: *HR* Amiodarone 200 MG TABLET PO SCH (10:56)
[2020-11-22] MEDS: Albumin 25% 25gram/100mL 25 GM/100 ML IV.SOLN IVPB SCH (10:57)
[2020-11-22] MEDS: Pantoprazole 40 MG VIAL IVP SCH (10:57)
[2020-11-22] MEDS ORDERED: Potassium Chloride Elixir 20 MEQ/15 ML UDC PO STA (12:21)
[2020-11-22 12:30] LABS: BUN/Creatinine Ratio 10 (6-26); Blood Urea Nitrogen 6 mg/dL (6-20); Calcium 7.7 mg/dL (8.6-10.3); Carbon Dioxide 30 mEq/L (23-29); Chloride 104 mEq/L (98-107); Glucose 82 mg/dL (70-105); Osmolality,Calculated 291 (280-300); Potassium 3.7 mEq/L (3.5-5.1); Sodium 142 mEq/L (136-145); eGFR For African Americans > 60 (> 60); eGFR For Non-African Americans > 60 (> 60)
[2020-11-22 14:11] LABS: INR 1.3; Prothrombin Time 15.1 Seconds (9.4-12.1)
[2020-11-22 17:19] LABS: RBC,Peritoneal Fluid < 2000 RBC/mcL
[2020-11-22 18:06] LABS: Appearance of Peritoneal Fl CLEAR (Clear)
[2020-11-22 18:09] LABS: Basophils,Peritoneal Fluid 0 %; Eosinophils,Peritoneal Fluid 0 %
[2020-11-22] MEDS: ursodioL 300 MG CAPSULE PO SCH (21:01)
[2020-11-22 21:46] LABS: Amphetamine Screen,Urine Negative ng/mL (Cutoff=1000); Barbiturate Screen,Urine Negative ng/mL (Cutoff=200); Benzodiazepines Screen,Urine Negative ng/mL (Cutoff=200); Cannabinoid Screen,Urine Negative ng/mL (Cutoff = 50); Cocaine Screen,Urine Negative ng/mL (Cutoff= 300); Opiate Screen,Urine Negative ng/mL (Cutoff=300); Phencyclidine Screen,Urine Negative ng/mL (Cutoff=25)
[2020-11-23 04:23] LABS: Basophils % 0.5 %; Eosinophils # 0.1 K/mcL (0.0-0.6); Eosinophils % 0.8 %; Hematocrit 27.7 % (35.3-44.9); Hemoglobin 9.3 g/dL (11.5-15.4); Immature Granulocytes % 0.3 % (0-4); Lymphocytes # 1.1 K/mcL (0.6-4.6); Lymphocytes % 18.6 %; Mean Corpuscular HGB Conc 33.6 g/dL (31.6-35.5); Mean Corpuscular Volume 86.3 fL (83.0-100.0); Mean Platelet Volume 9.9 fL (9.4-12.4); Monocytes # 0.6 K/mcL (0.0-1.3); Monocytes % 9.7 %; Neutrophils # 4.2 K/mcL (1.6-8.9); Platelet Count 183 K/mcL (140-400); Red Blood Count 3.21 M/mcL (3.82-4.97); Red Cell Distribution Width 20.6 % (11.5-14.5); Segmented Neutrophils % 70.1 %
[2020-11-23 04:45] LABS: Alanine Aminotransferase 56 Units/L (7-52); Albumin 2.8 g/dL (3.5-5.7); Albumin/Globulin Ratio 1.2 (1.1-2.2); Alkaline Phosphatase 120 Units/L (34-104); Aspartate Amino Transferase 72 Units/L (13-39); BUN/Creatinine Ratio 7 (6-26); Bilirubin,Total 2.1 mg/dL (0.3-1.0); Blood Urea Nitrogen 4 mg/dL (6-20); Calcium 7.7 mg/dL (8.6-10.3); Carbon Dioxide 32 mEq/L (23-29); Chloride 103 mEq/L (98-107); Globulin 2.3 g/dL (2.4-3.5); Glucose 79 mg/dL (70-105); Osmolality,Calculated 288 (280-300); Potassium 2.8 mEq/L (3.5-5.1); Sodium 141 mEq/L (136-145); Total Protein 5.1 g/dL (6.4-8.9); eGFR For African Americans > 60 (> 60); eGFR For Non-African Americans > 60 (> 60)
[2020-11-23] MEDS: Budesonide/Formoterol 160/4.5 1 PUFF INH IH SCH ×2 (08:11→19:51)
[2020-11-23] MEDS: Tiotropium 10 INH DOSE IH SCH (08:11)
[2020-11-23] MEDS ORDERED: Potassium Chloride Elixir 20 MEQ/15 ML UDC PO ONE (08:38)
[2020-11-23] MEDS: Aspirin Enteric Coated 81 MG Tablet PO SCH (09:25)
[2020-11-23] MEDS: *HR* Amiodarone 200 MG TABLET PO SCH (09:25)
[2020-11-23] MEDS: Pantoprazole 40 MG VIAL IVP SCH (09:26)
[2020-11-23] MEDS: ursodioL 300 MG CAPSULE PO SCH ×2 (09:35→20:56)
[2020-11-23] MEDS ORDERED: Furosemide 20 MG/2 ML VIAL IVP ONE (10:35)
[2020-11-23] MEDS: Lactulose Oral Soln 20 GM/30 ML UDC PO SCH ×2 (14:19→20:56)
[2020-11-24 05:35] LABS: Basophils % 0.5 %; Eosinophils # 0.1 K/mcL (0.0-0.6); Eosinophils % 0.6 %; Hematocrit 31.1 % (35.3-44.9); Hemoglobin 10.5 g/dL (11.5-15.4); Immature Granulocytes % 0.5 % (0-4); Lymphocytes # 1.2 K/mcL (0.6-4.6); Lymphocytes % 13.4 %; Mean Corpuscular HGB Conc 33.8 g/dL (31.6-35.5); Mean Corpuscular Hemoglobin 29.7 pg (28.0-33.3); Mean Corpuscular Volume 87.9 fL (83.0-100.0); Mean Platelet Volume 11.4 fL (9.4-12.4); Monocytes # 0.9 K/mcL (0.0-1.3); Monocytes % 10.6 %; Platelet Count 180 K/mcL (140-400); Red Blood Count 3.54 M/mcL (3.82-4.97); Red Cell Distribution Width 20.9 % (11.5-14.5); Segmented Neutrophils % 74.4 %; White Blood Count 8.8 K/mcL (4.3-11.1)
[2020-11-24 05:40] LABS: Alanine Aminotransferase 57 Units/L (7-52); Albumin 2.7 g/dL (3.5-5.7); Albumin/Globulin Ratio 1.2 (1.1-2.2); Alkaline Phosphatase 134 Units/L (34-104); Aspartate Amino Transferase 68 Units/L (13-39); BUN/Creatinine Ratio 6 (6-26); Bilirubin,Total 1.9 mg/dL (0.3-1.0); Blood Urea Nitrogen 4 mg/dL (6-20); Calcium 7.5 mg/dL (8.6-10.3); Carbon Dioxide 30 mEq/L (23-29); Chloride 101 mEq/L (98-107); Globulin 2.3 g/dL (2.4-3.5); Glucose 94 mg/dL (70-105); Osmolality,Calculated 283 (280-300); Potassium 3.3 mEq/L (3.5-5.1); Sodium 138 mEq/L (136-145); eGFR For African Americans > 60 (> 60); eGFR For Non-African Americans > 60 (> 60)
[2020-11-24 06:08] LABS: Neutrophils # 6.6 K/mcL (1.6-8.9); Platelet Estimate Normal (Normal)
[2020-11-24] MEDS ORDERED: Potassium Chloride Elixir 20 MEQ/15 ML UDC PO ONE (07:50)
[2020-11-24] MEDS: Budesonide/Formoterol 160/4.5 1 PUFF INH IH SCH ×2 (07:51→19:30)
[2020-11-24] MEDS: Tiotropium 10 INH DOSE IH SCH (07:51)
[2020-11-24] MEDS: ursodioL 300 MG CAPSULE PO SCH ×2 (09:09→22:33)
[2020-11-24] MEDS: Lactulose Oral Soln 20 GM/30 ML UDC PO SCH ×2 (09:09→22:34)
[2020-11-24] MEDS: Aspirin Enteric Coated 81 MG Tablet PO SCH (09:09)
[2020-11-24] MEDS: *HR* Amiodarone 200 MG TABLET PO SCH (09:09)
[2020-11-24] MEDS: Pantoprazole 40 MG VIAL IVP SCH (09:40)
[2020-11-24] MEDS ORDERED: Furosemide 20 MG/2 ML VIAL IVP ONE ×2 (11:46→16:13)
[2020-11-24] MEDS ORDERED: Lactulose Oral Soln 20 GM/30 ML UDC PO ONE (11:46)
[2020-11-24] MEDS: Albumin 25% 25gram/100mL 25 GM/100 ML IV.SOLN IVPB SCH (15:54)
[2020-11-24] MEDS ORDERED: Furosemide 20 MG/2 ML VIAL IVP SCH (16:06)
[2020-11-25] MEDS: Albumin 25% 25gram/100mL 25 GM/100 ML IV.SOLN IVPB SCH ×4 (01:41→23:33)
[2020-11-25 02:26] LABS: Basophils % 0.3 %; Eosinophils # 0.1 K/mcL (0.0-0.6); Eosinophils % 0.7 %; Hematocrit 27.8 % (35.3-44.9); Hemoglobin 9.4 g/dL (11.5-15.4); Immature Granulocytes % 0.3 % (0-4); Lymphocytes # 1.1 K/mcL (0.6-4.6); Lymphocytes % 15.4 %; Mean Corpuscular HGB Conc 33.8 g/dL (31.6-35.5); Mean Corpuscular Hemoglobin 29.9 pg (28.0-33.3); Mean Corpuscular Volume 88.5 fL (83.0-100.0); Mean Platelet Volume 10.1 fL (9.4-12.4); Monocytes # 0.8 K/mcL (0.0-1.3); Monocytes % 10.4 %; Neutrophils # 5.2 K/mcL (1.6-8.9); Platelet Count 178 K/mcL (140-400); Red Blood Count 3.14 M/mcL (3.82-4.97); Red Cell Distribution Width 20.8 % (11.5-14.5); Segmented Neutrophils % 72.9 %; White Blood Count 7.2 K/mcL (4.3-11.1)
[2020-11-25 02:46] LABS: BUN/Creatinine Ratio 6 (6-26); Blood Urea Nitrogen 4 mg/dL (6-20); Calcium 7.7 mg/dL (8.6-10.3); Carbon Dioxide 29 mEq/L (23-29); Chloride 100 mEq/L (98-107); Glucose 96 mg/dL (70-105); Osmolality,Calculated 283 (280-300); Phosphorous 1.8 mg/dL (2.7-4.5); Potassium 3.1 mEq/L (3.5-5.1); Sodium 138 mEq/L (136-145); eGFR For African Americans > 60 (> 60); eGFR For Non-African Americans > 60 (> 60)
[2020-11-25] MEDS: Budesonide/Formoterol 160/4.5 1 PUFF INH IH SCH ×2 (07:52→20:41)
[2020-11-25] MEDS: Tiotropium 10 INH DOSE IH SCH (07:56)
[2020-11-25] MEDS ORDERED: Potassium Chloride Elixir 20 MEQ/15 ML UDC PO ONE (08:27)
[2020-11-25] MEDS ORDERED: Potassium Phosphate 44 MEQ in 0.9 % Sodium Chloride 250 ML IVPB ONE (08:29)
[2020-11-25] MEDS: Spironolactone 12.5 MG TABLET PO SCH (08:55)
[2020-11-25] MEDS: Aspirin Enteric Coated 81 MG Tablet PO SCH (08:55)
[2020-11-25] MEDS: Furosemide 40 MG TABLET PO SCH (08:56)
[2020-11-25] MEDS: *HR* Amiodarone 200 MG TABLET PO SCH (08:56)
[2020-11-25] MEDS: ursodioL 300 MG CAPSULE PO SCH ×2 (08:56→20:21)
[2020-11-25] MEDS: Lactulose Oral Soln 20 GM/30 ML UDC PO SCH ×2 (08:57→20:21)
[2020-11-26 05:17] LABS: Basophils % 0.5 %; Eosinophils # 0.1 K/mcL (0.0-0.6); Eosinophils % 1.2 %; Hematocrit 26.7 % (35.3-44.9); Hemoglobin 8.6 g/dL (11.5-15.4); Immature Granulocytes % 0.4 % (0-4); Lymphocytes % 18.4 %; Mean Corpuscular HGB Conc 32.2 g/dL (31.6-35.5); Mean Corpuscular Hemoglobin 29.1 pg (28.0-33.3); Mean Corpuscular Volume 90.2 fL (83.0-100.0); Mean Platelet Volume 10.5 fL (9.4-12.4); Monocytes # 0.7 K/mcL (0.0-1.3); Neutrophils # 3.8 K/mcL (1.6-8.9); Platelet Count 176 K/mcL (140-400); Red Blood Count 2.96 M/mcL (3.82-4.97); Red Cell Distribution Width 21.3 % (11.5-14.5); Segmented Neutrophils % 67.5 %; White Blood Count 5.7 K/mcL (4.3-11.1)
[2020-11-26 05:37] LABS: BUN/Creatinine Ratio 5 (6-26); Blood Urea Nitrogen 3 mg/dL (6-20); Calcium 8.1 mg/dL (8.6-10.3); Carbon Dioxide 31 mEq/L (23-29); Chloride 102 mEq/L (98-107); Glucose 73 mg/dL (70-105); Magnesium 1.7 mg/dL (1.6-2.6); Osmolality,Calculated 283 (280-300); Phosphorous 2.4 mg/dL (2.7-4.5); Sodium 139 mEq/L (136-145); eGFR For African Americans > 60 (> 60); eGFR For Non-African Americans > 60 (> 60)
[2020-11-26] MEDS: Tiotropium 10 INH DOSE IH SCH (07:52)
[2020-11-26] MEDS: Budesonide/Formoterol 160/4.5 1 PUFF INH IH SCH (07:52)
[2020-11-26] MEDS: *HR* Amiodarone 200 MG TABLET PO SCH (08:57)
[2020-11-26] MEDS: Aspirin Enteric Coated 81 MG Tablet PO SCH (08:57)
[2020-11-26] MEDS: Spironolactone 12.5 MG TABLET PO SCH (08:57)
[2020-11-26] MEDS: Furosemide 40 MG TABLET PO SCH (08:57)
[2020-11-26] MEDS: ursodioL 300 MG CAPSULE PO SCH (08:58)
[2020-11-26] MEDS: Lactulose Oral Soln 20 GM/30 ML UDC PO SCH (08:58)
[2020-11-26] MEDS: Albumin 25% 25gram/100mL 25 GM/100 ML IV.SOLN IVPB SCH (09:27)
[2020-11-26 10:50] VITALS: BP 108/57
== END 2020-11-26 15:26 | disposition home health service (06) | DRG 433 ==
LOC: EMEROOARM 19:38 → 3ANU 19:38 → SUATTDRO 11-21 00:37 → 3ANU 11-21 01:41
PROVIDERS: ADMIT Internal Medicine; ATTEND Student in an Organized Health Care Education/Training Program

== ENCOUNTER 2020-11-30 20:00 | Observation (INO) ==
[2020-11-30 21:20] LABS: Basophils # 0.1 K/mcL (0.0-0.2); Basophils % 0.6 %; Eosinophils # 0.1 K/mcL (0.0-0.6); Hematocrit 28.4 % (35.3-44.9); Hemoglobin 9.9 g/dL (11.5-15.4); Immature Granulocytes % 0.4 % (0-4); Lymphocytes # 1.4 K/mcL (0.6-4.6); Lymphocytes % 17.2 %; Mean Corpuscular HGB Conc 34.9 g/dL (31.6-35.5); Mean Platelet Volume 10.2 fL (9.4-12.4); Monocytes # 1.3 K/mcL (0.0-1.3); Neutrophils # 5.4 K/mcL (1.6-8.9); Platelet Count 263 K/mcL (140-400); Red Blood Count 3.19 M/mcL (3.82-4.97); Red Cell Distribution Width 23.1 % (11.5-14.5); Segmented Neutrophils % 64.8 %; White Blood Count 8.3 K/mcL (4.3-11.1)
[2020-11-30 21:40] LABS: Alanine Aminotransferase 27 Units/L (7-52); Albumin/Globulin Ratio 1.5 (1.1-2.2); Alkaline Phosphatase 97 Units/L (34-104); Anisocytosis 1+ (Not Present); Aspartate Amino Transferase 44 Units/L (13-39); BUN/Creatinine Ratio 10 (6-26); Bilirubin,Total 2.3 mg/dL (0.3-1.0); Blood Urea Nitrogen 6 mg/dL (6-20); Carbon Dioxide 29 mEq/L (23-29); Chloride 99 mEq/L (98-107); Glucose 77 mg/dL (70-105); Hypochromasia Present (Not Present); Osmolality,Calculated 280 (280-300); Platelet Estimate Normal (Normal); Potassium 3.5 mEq/L (3.5-5.1); Sodium 137 mEq/L (136-145); Target Cells 1+ (Not Present); Troponin I < 0.03 ng/mL (< 0.04); eGFR For African Americans > 60 (> 60); eGFR For Non-African Americans > 60 (> 60)
[2020-11-30] MEDS ORDERED: Lactulose Oral Soln 20 GM/30 ML UDC PO ONE (22:03)
[2020-11-30 22:11] LABS: INR 1.5; Prothrombin Time 17.6 Seconds (9.4-12.1)
[2020-11-30 22:13] LABS: Activated Partial Thrombo Time 33.3 Seconds (26.0-36.0)
[2020-11-30] MEDS ORDERED: 0.9 % Sodium Chloride 1,000 ML IVC ONE (22:40)
[2020-11-30] MEDS ORDERED: Naloxone 0.4 MG/ML INJ IVP PRN (22:58)
[2020-11-30] MEDS ORDERED: Melatonin 3 MG TABLET PO PRN (23:04)
[2020-11-30 23:05] LABS: Bacteria,Urine Few per hpf (None-Few); Bilirubin,Urine Negative (Negative); Blood,Urine Negative (Negative); Clarity,Urine Turbid (Clear); Color,Urine Yellow (Yellow); Glucose,Urine (UA) Normal (Normal); Hyaline Casts,Urine Few per lpf (None Seen); Ketones,Urine Negative (Negative); Leukocyte Esterase,Urine Negative (Negative); Mucus,Urine Moderate per lpf (None-Few); Nitrite,Urine Negative (Negative); Protein,Urine Trace mg/dL (Neg-Trace); RBC,Urine 0-3 per hpf (0-3); Squamous Epithelial Cell,Urine Moderate per hpf (None-Few); Urobilinogen,Urine Normal (Normal)
[2020-12-01 05:09] LABS: Basophils # 0.1 K/mcL (0.0-0.2); Basophils % 0.9 %; Eosinophils # 0.1 K/mcL (0.0-0.6); Eosinophils % 1.3 %; Hematocrit 28.6 % (35.3-44.9); Hemoglobin 9.6 g/dL (11.5-15.4); Immature Granulocytes % 0.3 % (0-4); Lymphocytes # 1.2 K/mcL (0.6-4.6); Lymphocytes % 18.3 %; Mean Corpuscular HGB Conc 33.6 g/dL (31.6-35.5); Mean Corpuscular Hemoglobin 29.8 pg (28.0-33.3); Mean Corpuscular Volume 88.8 fL (83.0-100.0); Mean Platelet Volume 9.6 fL (9.4-12.4); Monocytes % 14.3 %; Neutrophils # 4.4 K/mcL (1.6-8.9); Platelet Count 247 K/mcL (140-400); Red Blood Count 3.22 M/mcL (3.82-4.97); Red Cell Distribution Width 22.9 % (11.5-14.5); Segmented Neutrophils % 64.9 %; White Blood Count 6.8 K/mcL (4.3-11.1)
[2020-12-01 05:15] LABS: INR 1.6; Prothrombin Time 17.7 Seconds (9.4-12.1)
[2020-12-01 05:30] LABS: Alanine Aminotransferase 23 Units/L (7-52); Albumin 2.7 g/dL (3.5-5.7); Albumin/Globulin Ratio 1.5 (1.1-2.2); Alkaline Phosphatase 92 Units/L (34-104); Aspartate Amino Transferase 34 Units/L (13-39); BUN/Creatinine Ratio 11 (6-26); Bilirubin,Total 2.1 mg/dL (0.3-1.0); Blood Urea Nitrogen 6 mg/dL (6-20); Calcium 7.5 mg/dL (8.6-10.3); Carbon Dioxide 30 mEq/L (23-29); Chloride 102 mEq/L (98-107); Globulin 1.8 g/dL (2.4-3.5); Glucose 72 mg/dL (70-105); Magnesium 1.8 mg/dL (1.6-2.6); Osmolality,Calculated 282 (280-300); Phosphorous 2.4 mg/dL (2.7-4.5); Potassium 2.9 mEq/L (3.5-5.1); Sodium 138 mEq/L (136-145); Total Protein 4.5 g/dL (6.4-8.9); Troponin I < 0.03 ng/mL (< 0.04); eGFR For African Americans > 60 (> 60); eGFR For Non-African Americans > 60 (> 60)
[2020-12-01] MEDS ORDERED: Lactulose Oral Soln 20 GM/30 ML UDC PO SCH (09:00)
[2020-12-01] MEDS ORDERED: Ipratropium/Albuterol Neb 3 ML IH PRN (11:28)
[2020-12-01] MEDS: Lactulose Oral Soln 20 GM/30 ML UDC PO SCH ×3 (12:34→20:25)
[2020-12-01 14:58] LABS: BUN/Creatinine Ratio 9 (6-26); Blood Urea Nitrogen 6 mg/dL (6-20); Calcium 7.8 mg/dL (8.6-10.3); Carbon Dioxide 26 mEq/L (23-29); Chloride 103 mEq/L (98-107); Glucose 93 mg/dL (70-105); Osmolality,Calculated 285 (280-300); Potassium 3.4 mEq/L (3.5-5.1); Sodium 139 mEq/L (136-145); eGFR For African Americans > 60 (> 60); eGFR For Non-African Americans > 60 (> 60)
[2020-12-01] MEDS: Ondansetron 4 MG/2 ML VIAL IVP PRN (18:36)
[2020-12-01] MEDS ORDERED: Simethicone 80 MG TAB.CHEW PO PRN (22:47)
[2020-12-02 01:35] LABS: BUN/Creatinine Ratio 9 (6-26); Blood Urea Nitrogen 6 mg/dL (6-20); Calcium 7.8 mg/dL (8.6-10.3); Carbon Dioxide 29 mEq/L (23-29); Chloride 103 mEq/L (98-107); Glucose 112 mg/dL (70-105); Magnesium 2.2 mg/dL (1.6-2.6); Osmolality,Calculated 290 (280-300); Potassium 3.2 mEq/L (3.5-5.1); Sodium 141 mEq/L (136-145); eGFR For African Americans > 60 (> 60); eGFR For Non-African Americans > 60 (> 60)
[2020-12-02] MEDS: Lactulose Oral Soln 20 GM/30 ML UDC PO SCH (09:02)
[2020-12-02] MEDS: Ondansetron 4 MG/2 ML VIAL IVP PRN (09:04)
[2020-12-02 10:33] VITALS: BP 134/71
[2020-12-02] MEDS ORDERED: Ipratropium/Albuterol Neb 3 ML IH PRN (11:00)
[2020-12-02] MEDS ORDERED: clonazePAM 1 MG TABLET PO PRN (11:00)
[2020-12-02] MEDS ORDERED: *HR* Amiodarone 200 MG TABLET PO SCH (11:15)
[2020-12-02] MEDS ORDERED: Aspirin Enteric Coated 81 MG Tablet PO SCH (11:15)
[2020-12-02] MEDS ORDERED: Spironolactone 25 MG TABLET PO SCH (11:15)
[2020-12-02] MEDS ORDERED: Furosemide 20 MG TABLET PO SCH (11:15)
[2020-12-02] MEDS ORDERED: NON-FORMULARY MEDICATION 1 EACH EACH (Fluticasone/Umeclidin/Vilanter [Trelegy Ellipta 100- IH SCH (11:15)
[2020-12-02] MEDS ORDERED: Lactulose Oral Soln 20 GM/30 ML UDC PO SCH (15:00)
[2020-12-02] MEDS ORDERED: Budesonide/Formoterol 160/4.5 1 PUFF INH IH SCH (22:00)
[2020-12-03] MEDS ORDERED: Tiotropium 10 INH DOSE IH SCH (10:00)
== END 2020-12-02 15:04 ==
LOC: EMEROOARM 20:00 → 3BNU 20:00 → SUATTDRO 22:16 → 3BNU 23:00
PROVIDERS: ADMIT Family Medicine; ATTEND Internal Medicine